=== PATIENT | female | born 1940 | race Caucasian/White ===

== ENCOUNTER 2019-04-10 11:36 | Inpatient (IN) | payer MEDICARE ==
[2019-04-10] MEDS ORDERED: BACIGUENT PACKET TP ONE (12:01)
--- NOTE | 2019-04-10 12:05 | ERPHSYRPT ---
- History of Present Illness Time Seen by Provider: 04/10/19 11:50 Source: patient, family (daughter) Exam Limitations: no limitations Physician History: Apparently got light headed and fell; refers to being light headed somewhat often. Says Right ankle is a little sore but thinks this was with "scooting" in moving with the transfer. C/O of Left elbow skin tear. No pain with use of either arm or elbows. Reason for Fall: lightheaded Injuries/Pain Location: upper extremity (Leftelbow skin tear; no pain) Loss of Consciousness: no loss of consciousness Associated Symptoms (Fall): denies symptoms Allergies/Adverse Reactions: tetracycline Allergy (Verified 04/10/19 11:53) Home Medications: Atorvastatin Calcium [Lipitor] 20 mg PO DAILY 04/10/19 [History] Fluticasone Propionate [Flonase NASAL] 16 gm NS BID 04/10/19 [History] Furosemide 80 mg PO DAILY 04/10/19 [History] Gabapentin 300 mg PO BID 04/10/19 [History] Levothyroxine Sodium [Levoxyl] 112 mcg PO DAILY 04/10/19 [History] PANTOPRAZOLE 40 mg Tablet [Protonix 40MG Tablet] 40 mg PO QAM 04/10/19 [ History] Potassium Chloride [Klor-Con M10] 10 meq PO TID 04/10/19 [History] Tramadol HCl 50 mg [Ultram 50 mg] 100 mg PO BID 04/10/19 [History] Hx Tetanus, Diphtheria Vaccination/Date Given: Yes (ER today) - Review of Systems Constitutional: No Symptoms Respiratory: No Symptoms Cardiac: No Symptoms Abdominal/Gastrointestinal: No Symptoms Genitourinary Symptoms: No Symptoms Neurological: Other (Light headed at times; clarifies - used to happen frequently until about 2 years ago) All Other Systems: Reviewed and Negative - Past Medical History Pertinent Past Medical History: Yes (prior hx similar) Neurological History: No Pertinent History ENT History: No Pertinent History - Past Surgical History Cardiac: No Pertinent History Respiratory: No Pertinent History Gastrointestinal: No Pertinent History Genitourinary: No Pertinent History - Nursing Vital Signs Nursing Vital Signs: Initial Vital Signs Temperature 100.9 F 04/10/19 11:57 Pulse Rate 95 H 04/10/19 11:57 Respiratory Rate 16 04/10/19 11:57 Blood Pressure 105/68 04/10/19 11:57 O2 Sat by Pulse Oximetry 96 04/10/19 11:57 Pain Scale Pain Intensity 0 - Joanna Coma Score Best Eye Response (Joanan): (4) open spontaneously Best Verbal Response (Wall): (5) oriented Best Motor Response (Joanna): (6) obeys commands Wall Total: 15 - Physical Exam General Appearance: no apparent distress Head Injury: no evidence of injury Eye Exam: PERRL/EOMI ENT Exam: airway nml Neck Exam: supple, No carotid bruit Respiratory/Chest Exam: normal breath sounds, No respiratory distress Cardiovascular Exam: normal heart sounds, normal peripheral pulses, No edema Gastrointestinal Exam: soft, normal bowel sounds Neurologic Exam: alert, oriented x 3, cooperative Skin Exam: normal color, warm, dry, abrasion (Skin tear L elbow) SpO2 Interpretation: normal O2 Delivery: Room Air - Course Nursing assessment & vital signs reviewed: Yes Ordered Tests: Active Orders 24 hr Category Date Time Status Up With Assistance ROUTINE Activity 04/10/19 15:21 Active Code Status Order ROUTINE Care 04/10/19 15:21 Active Fall Protocol ROUTINE Care 04/10/19 15:23 Active IV Care Q6H Care 04/10/19 15:21 Active Neuro Checks Q4H Care 04/10/19 15:[address] in Observation ROUTINE Care 04/10/19 15:21 Active Wound Care STAT Care 04/10/19 12:00 Active Regular Diet Diet 04/10/19 Dinner Active HEAD WITHOUT CONTRAST [CT] Stat Exams 04/10/19 13:02 Taken CBC W DIFF AM.LAB Lab 04/11/19 04:00 Ordered CBC W DIFF Stat Lab 04/10/19 12:30 Completed CMP AM.LAB Lab 04/11/19 04:00 Ordered CMP Stat Lab 04/10/19 12:30 Completed CULTURE,URINE Stat Lab 04/10/19 12:31 Received Manual Differential NC Stat Lab 04/10/19 12:30 Completed UA W/RFX UR CULTURE Stat Lab 04/10/19 12:31 Completed Medication Summary Generic Name Dose Route Start Last Admin Trade Name Freq PRN Reason Stop Dose Admin Enoxaparin Sodium 40 mg 04/10/19 16:16 Enoxaparin Sodium SQ 05/10/19 16:15 DAILY BETH Fluticasone Propionate 16 gm 04/10/19 17:00 Flonase Nasal NS 05/10/19 16:59 BID [facility] Gabapentin 300 mg 04/10/19 17:00 Neurontin 300 Mg PO 05/10/19 16:59 BID [facility] Sodium Chloride 1,000 mls @ 100 mls/hr 04/10/19 15:30 Sodium Chloride 0.9% 1000 Ml IV 05/10/19 15:29 .Q10H [facility] Levothyroxine Sodium 112 mcg 04/10/19 17:00 Synthroid 112 Mcg PO 05/10/19 16:59 QAM [facility] Pantoprazole Sodium 40 mg 04/10/19 17:00 Protonix 40mg Tablet PO 05/10/19 16:59 DAILY [facility] Simvastatin 20 mg 04/10/19 17:00 Zocor 20mg PO 05/10/19 16:59 DAILY [facility] Tramadol HCl 100 mg 04/10/19 17:00 Ultram 50 Mg PO 05/10/19 16:59 BID [facility] Discontinued Medications Generic Name Dose Route Start Last Admin Trade Name Freq PRN Reason Stop Dose Admin Acetaminophen 500 mg 04/10/19 15:38 04/10/19 15:42 Tylenol Extra Strength 500 Mg PO 04/10/19 15:39 500 mg STAT STA Administration Acetaminophen Confirm 04/10/19 15:41 Tylenol Extra Strength 500 Mg Administered 04/10/19 15:42 Dose 500 mg .ROUTE .STK-MED ONE Bacitracin Zinc 0.9 gm 04/10/19 12:01 04/10/19 12:19 Baciguent Packet TP 04/10/19 12:02 0.9 gm STAT ONE Administration Bacitracin Zinc Confirm 04/10/19 12:14 Baciguent Packet Administered 04/10/19 12:15 Dose 1 gm .ROUTE .STK-MED ONE Sodium Chloride 1,000 mls @ 999 mls/hr 04/10/19 12:25 04/10/19 13:51 Sodium Chloride 0.9% 1000 Ml IV 04/10/19 13:25 Infused .Q1H1M STA Infusion Sodium Chloride 1,000 mls @ 999 mls/hr 04/10/19 12:26 04/10/19 12:28 Sodium Chloride 0.9% 1000 Ml IV 04/10/19 13:26 Not Given .Q1H1M STA Sodium Chloride Confirm 04/10/19 12:26 Sodium Chloride 0.9% 1000 Ml Administered 04/10/19 12:27 Dose 1,000 mls @ ud .ROUTE .STK-MED ONE Tetanus/Diphtheria Toxoids Adsorbed 0.5 ml 04/10/19 12:11 04/10/19 12:18 Tenivac Vial IM 04/10/19 12:12 0.5 ml .ONCE ONE Administration Tetanus/Diphtheria Toxoids Adsorbed Confirm 04/10/19 12:15 Tenivac Vial Administered 04/10/19 12:16 Dose 0.5 ml IM .STK-MED ONE Lab/Rad Data: Laboratory Result Diagrams 04/10/19 12:30 04/10/19 12:30 Laboratory Results 04/10/19 04/10/19 04/10/19 Range/Units 12:31 12:30 12:30 WBC 17.2 H (4.0-10.5) K/mm3 RBC 3.30 L (4.1-5.4) M/mm3 Hgb 11.1 L (12.0-16.0) gm/dl Hct 34.4 L (35-47) % MCV 104.2 H (78-100) fl MCH 33.6 H (26-32) pg MCHC 32.3 (32-36) g/dl RDW 14.0 (11.5-14.0) % Plt Count 386 (150-450) K/mm3 MPV 12.7 H (6-9.5) fl Segmented Neutrophils 73 H (36.0-66.0) % Band Neutrophils 9 H (0.0-2.0) % Lymphocytes (Manual) 15 L (24-44) % Monocytes (Manual) 2 (0.0-12.0) % Atypical Lymphocytes 1 % Hypochromia 1+ Platelet Estimate NORMAL (NORMAL) RBC Morphology ABNORMAL Macrocytosis 1+ Sodium 139 (137-145) mmol/L Potassium 4.1 (3.5-5.1) mmol/L Chloride 103 (98-107) mmol/L Carbon Dioxide 26 (22-30) mmol/L Anion Gap 13.2 (5-15) MEQ/L BUN 21 H (7-17) mg/dL Creatinine 1.48 H (0.52-1.04) mg/dL Estimated GFR 36.0 ML/MIN Glucose 132 H (74-106) mg/dL Calcium 9.2 (8.4-10.2) mg/dL Total Bilirubin 0.90 (0.2-1.3) mg/dL AST 24 (14-36) U/L ALT 16 (0-35) U/L Alkaline Phosphatase 59 (38-126) U/L Serum Total Protein 7.2 (6.3-8.2) g/dL Albumin 4.2 (3.5-5.0) g/dL Urine Color YELLOW (YELLOW) Urine Appearance CLEAR (CLEAR) Urine pH 6.0 (5-6) Ur Specific [place] 1.013 (1.005-1.025) Urine Protein NEGATIVE (Negative) Urine Ketones NEGATIVE (NEGATIVE) Urine Blood NEGATIVE (0-5) [place]/ul Urine Nitrite NEGATIVE (NEGATIVE) Urine Bilirubin NEGATIVE (NEGATIVE) Urine Urobilinogen NEGATIVE (0-1) mg/dL Ur Leukocyte Esterase NEGATIVE (NEGATIVE) Urine WBC (Auto) NONE (0-5) /HPF Urine Mucus (Auto) SLIGHT (NEGATIVE) /HPF Urine Culture Reflexed ORDERED SEPARATELY (NO) Urine Glucose NEGATIVE (NEGATIVE) mg/dL - Progress Progress: improved (no distress; ate meal;) Progress Note: 04/10/19 17:07Discussd at length high WBC - history of same and being followed at [facility] for same. Urine clear on UA; labs essentially unremarkable otherwise. Discussed with Dr. Urbano who agrees with admission/OBS - weakness/ dehydration. Discussed with : Sundeep Will see patient in: hospital (observation) (Agrees with Admission/OBS) - Departure Departure Disposition: Observation Clinical Impression: Weakness, Dehydration Condition: Stable Critical Care Time: Yes Critical Care Time(excluding separately billable procedures): 30-74 minutes ( Review of labs, history of prior similar presentation and history of eval for high WBC; discussion with daughter and patient and attending; CT eval of head ( headache)), ___ minutes
[2019-04-10] MEDS ORDERED: TENIVAC VIAL IM ONE ×2 (12:11→12:15)
[2019-04-10] MEDS ORDERED: BACIGUENT PACKET ONE (12:14)
[2019-04-10] MEDS ORDERED: Sodium Chloride 0.9% 1000 ML 1,000 ML IV STA ×2 (12:25→12:26)
[2019-04-10] MEDS ORDERED: Sodium Chloride 0.9% 1000 ML 1,000 ML ONE (12:26)
[2019-04-10 12:38] LABS: Hematocrit 34.4 % (35-47); Hemoglobin 11.1 gm/dl (12.0-16.0); Mean Cell Volume 104.2 fl (78-100); Mean Corpuscular Hemoglobin 33.6 pg (26-32); Mean Corpuscular Hgb Concent. 32.3 g/dl (32-36); Mean Platelet Volume 12.7 fl (6-9.5); Platelet Count 386 K/mm3 (150-450); White Blood Count 17.2 K/mm3 (4.0-10.5)
[2019-04-10 12:40] LABS: Appearance CLEAR (CLEAR); Bilirubin NEGATIVE (NEGATIVE); Blood NEGATIVE Ery/ul (0-5); Glucose NEGATIVE (NEGATIVE); Ketones NEGATIVE (NEGATIVE); Leukocyte Esterase NEGATIVE (NEGATIVE); Mucus SLIGHT /HPF (NEGATIVE); Nitrite NEGATIVE (NEGATIVE); Protein,Urine Dip NEGATIVE (Negative); Specific Gravity 1.013 (1.005-1.025); Urobilinogen NEGATIVE mg/dL (0-1)
[2019-04-10 12:42] LABS: ALBUMIN 4.2 g/dL (3.5-5.0); ANION GAP 13.2 MEQ/L (5-15); BILIRUBIN,TOTAL 0.9 mg/dL (0.2-1.3); Calcium 9.2 mg/dL (8.4-10.2); Creatinine 1 1.48 mg/dL (0.52-1.04); Potassium 4.1 mmol/L (3.5-5.1); Total Protein 7.2 g/dL (6.3-8.2)
[2019-04-10 13:39] LABS: ATYPICAL LYMPHS 1 %; BAND 9 % (0.0-2.0); Hypochromia 1+; Lymphocytes 15 % (24-44); Macrocytosis 1+; Monocyte 2 % (0.0-12.0); Neutrophils 73 % (36.0-66.0); Platelet Estimate NORMAL (NORMAL); Total Cells Counted 100
[2019-04-10] MEDS ORDERED: TYLENOL EXTRA STRENGTH 500 MG PO STA (15:38)
[2019-04-10] MEDS ORDERED: TYLENOL EXTRA STRENGTH 500 MG ONE (15:41)
[2019-04-10] MEDS: Flonase NASAL NS SCH ×2 (17:26→21:53)
[2019-04-10] MEDS: ULTRAM 50 MG PO SCH ×2 (17:27→21:52)
[2019-04-10] MEDS: NEURONTIN 300 MG PO SCH ×2 (17:27→21:52)
[2019-04-10] MEDS: ZOCOR 20MG PO SCH (17:33)
[2019-04-10] MEDS: SYNTHROID 112 MCG PO SCH (17:33)
[2019-04-10] MEDS: Protonix 40MG Tablet PO SCH (17:33)
[2019-04-10] MEDS: ENOXAPARIN SODIUM SQ SCH (17:34)
[2019-04-10] MEDS ORDERED: Zofran 4 MG/2 ML VIAL IV PRN (19:47)
[2019-04-10] MEDS: TYLENOL 325 MG PO PRN (19:59)
--- NOTE | 2019-04-10 20:55 | XRAY ---
Indication: Headache following fall. Multiple contiguous axial images obtained through the head without contrast. Comparison: None Age-appropriate global atrophy and mild periventricular degenerative micro-ischemia bilaterally. No acute intracranial hemorrhage, abnormal extra-axial fluid collection, or mass effect. Fourth ventricle is midline without hydrocephalus. Bony calvarium intact. Visualized paranasal sinuses and mastoid air cells are clear. Impression: Nonacute senile brain. Comment: Preliminary interpretation was made by [facility]. No discrepancy. CTDI 50.87
[2019-04-10] MEDS: Sodium Chloride 0.9% 1000 ML 1,000 ML IV SCH (21:27)
[2019-04-10] MEDS ORDERED: ROCEPHIN 1 Gm-D5w 50 ml Bag** 1 G/50 ML IVPB IV SCH (22:00)
[2019-04-11 06:01] LABS: Hematocrit 30.1 % (35-47); Hemoglobin 9.6 gm/dl (12.0-16.0); Mean Cell Volume 105.2 fl (78-100); Mean Corpuscular Hgb Concent. 31.9 g/dl (32-36); Mean Platelet Volume 12.6 fl (6-9.5); Platelet Count 316 K/mm3 (150-450); Red Blood Count 2.86 M/mm3 (4.1-5.4); Red Cell Distribution Width 14.2 % (11.5-14.0); White Blood Count 18.9 K/mm3 (4.0-10.5)
[2019-04-11 06:11] LABS: Mean Corpuscular Hemoglobin 33.5 pg (26-32)
[2019-04-11 06:51] LABS: ALBUMIN 3.2 g/dL (3.5-5.0); ANION GAP 10.3 MEQ/L (5-15); BILIRUBIN,TOTAL 0.9 mg/dL (0.2-1.3); Calcium 8.2 mg/dL (8.4-10.2); Creatinine 1 1.3 mg/dL (0.52-1.04); Total Protein 5.8 g/dL (6.3-8.2)
[2019-04-11] MEDS: TYLENOL 325 MG PO PRN (07:02)
[2019-04-11] MEDS: Sodium Chloride 0.9% 1000 ML 1,000 ML IV SCH (07:49)
--- NOTE | 2019-04-11 08:22 | PCM.HP ---
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 - Review of Systems Constitutional: Fever, Chills, Weakness Respiratory: No Cough, No Short Of Breath Cardiac: No Chest Pain, No Edema, No Syncope Abdominal/Gastrointestinal: No Abdominal Pain, No Nausea, No Vomiting, No Diarrhea Genitourinary Symptoms: No Dysuria Musculoskeletal: Other (right lower leg red, painful) Medications & Allergies Home Medications: Home Medication List Atorvastatin Calcium [Lipitor] 20 mg PO DAILY 04/10/19 [History Confirmed ] Fluticasone Propionate [Flonase NASAL] 16 gm NS BID 04/10/19 [History Confirmed 04/10/19] Furosemide 80 mg PO DAILY 04/10/19 [History Confirmed 04/10/19] Gabapentin 300 mg PO BID 04/10/19 [History Confirmed 04/10/19] Levothyroxine Sodium [Levoxyl] 112 mcg PO DAILY 04/10/19 [History Confirmed 12/24] PANTOPRAZOLE 40 mg Tablet [Protonix 40MG Tablet] 40 mg PO QAM 04/10/19 [ History Confirmed 04/10/19] Potassium Chloride [Klor-Con M10] 10 meq PO TID 04/10/19 [History Confirmed 12/24] Tramadol HCl 50 mg [Ultram 50 mg] 100 mg PO BID 04/10/19 [History Confirmed 04/10/19] Allergies/Adverse Reactions: Allergies Allergy/AdvReac Type Severity Reaction Status Date / Time tetracycline Allergy Verified 04/10/19 11:53 - Past Medical History Past Medical History: Yes (prior hx similar) Neurological History: No Pertinent History ENT History: No Pertinent History Cardiac History: High Cholesterol, Hypertension Respiratory History: No Pertinent History Endocrine Medical History: Hypothyroidism Musculoskelatal History: Arthritis GI Medical History: GERD History: No Pertinent History Pyscho-Social History: No Pertinent History Reproductive Disorders: No Pertinent History - Female History Are you now?: No - Past Surgical History Past Surgical History: Yes Cardiac History: No Pertinent History Respiratory Surgery: No Pertinent History GI Surgical History: No Pertinent History Genitourinary Surgical Hx: No Pertinent History Musculskeletal Surgical Hx: Orthopedic Surgery Female Surgical History: Hysterectomy, Section Other Surgical History: right hip and right hand - Social History Smoking Status: Former smoker Exposure to second hand smoke: No Alcohol: None Drug Use: none - Physical Exam Vital Signs: Vital Signs - 24 hr Temp Pulse Resp BP Pulse Ox 04/11/19 07:22 99.5 F 92 H 18 102/56 93 L 04/11/19 04:10 100.0 F 96 H 17 100/55 94 L 04/10/19 23:56 100.5 F 97 H 16 100/53 97 04/10/19 21:45 100.0 F 04/10/19 19:38 102.3 F 105 H 18 134/93 98 04/10/19 16:55 98.3 F 93 H 20 120/54 97 04/10/19 16:30 98.3 F 93 H 20 120/54 97 04/10/19 16:18 98.3 F 93 H 20 120/54 97 04/10/19 15:13 90 16 90/41 94 L 04/10/19 13:36 91 H 16 100/64 95 04/10/19 11:57 100.9 F 95 H 16 105/68 96 General Appearance: no apparent distress, alert Neurologic Exam: alert, oriented x 3 Respiratory Exam: crackles/rales Cardiovascular Exam: regular rate/rhythm, normal heart sounds, normal peripheral pulses Gastrointestinal/Abdomen Exam: soft, normal bowel sounds, No tenderness, No mass Extremity Exam: other (right lower leg redness and warmth from mid-calf to foot , tender calf. right great toe with ulcerative area with purulent drainage present after dressing removed) Wound Assessment: Skin/Wound Assessment Wound/Incision Assessment Start: 04/10/19 17: 03 Text: Status: Active Freq: Q6H Protocol: Document 04/11/19 02:00 (Rec: 04/11/19 03:26 [id number]) Wound/Incision Assessment Right Toe Wound Assessment Shift Assessment Comment dressing in tact on rt. great toe that was put on by foot MD and is to stay in place until her next appt. Left Elbow Wound Assessment Shift Assessment Wound Type Skin Tear Comment tegaderm in place Wound Photo Photo Taken No Results - Labs Lab/Micro Results: Lab Results-Last 24 Hours 04/10/19 04/10/19 04/10/19 Range/Units 12:30 12:30 12:31 WBC 17.2 H (4.0-10.5) K/mm3 RBC 3.30 L (4.1-5.4) M/mm3 Hgb 11.1 L (12.0-16.0) gm/dl Hct 34.4 L (35-47) % MCV 104.2 H (78-100) fl MCH 33.6 H (26-32) pg MCHC 32.3 (32-36) g/dl RDW 14.0 (11.5-14.0) % Plt Count 386 (150-450) K/mm3 MPV 12.7 H (6-9.5) fl Segmented Neutrophils 73 H (36.0-66.0) % Band Neutrophils 9 H (0.0-2.0) % Lymphocytes (Manual) 15 L (24-44) % Monocytes (Manual) 2 (0.0-12.0) % Atypical Lymphocytes 1 % Hypochromia 1+ Platelet Estimate NORMAL (NORMAL) RBC Morphology ABNORMAL Macrocytosis 1+ Sodium 139 (137-145) mmol/L Potassium 4.1 (3.5-5.1) mmol/L Chloride 103 (98-107) mmol/L Carbon Dioxide 26 (22-30) mmol/L Anion Gap 13.2 (5-15) MEQ/L BUN 21 H (7-17) mg/dL Creatinine 1.48 H (0.52-1.04) mg/dL Estimated GFR 36.0 ML/MIN Glucose 132 H (74-106) mg/dL Calcium 9.2 (8.4-10.2) mg/dL Total Bilirubin 0.90 (0.2-1.3) mg/dL AST 24 (14-36) U/L ALT 16 (0-35) U/L Alkaline Phosphatase 59 (38-126) U/L Serum Total Protein 7.2 (6.3-8.2) g/dL Albumin 4.2 (3.5-5.0) g/dL Urine Color YELLOW (YELLOW) Urine Appearance CLEAR (CLEAR) Urine pH 6.0 (5-6) Ur Specific [place] 1.013 (1.005-1.025) Urine Protein NEGATIVE (Negative) Urine Ketones NEGATIVE (NEGATIVE) Urine Blood NEGATIVE (0-5) [place]/ul Urine Nitrite NEGATIVE (NEGATIVE) Urine Bilirubin NEGATIVE (NEGATIVE) Urine Urobilinogen NEGATIVE (0-1) mg/dL Ur Leukocyte Esterase NEGATIVE (NEGATIVE) Urine WBC (Auto) NONE (0-5) /HPF Urine Mucus (Auto) SLIGHT (NEGATIVE) /HPF Urine Culture Reflexed ORDERED SEPARATELY (NO) Urine Glucose NEGATIVE (NEGATIVE) mg/dL 04/11/19 04/11/19 Range/Units 05:37 05:37 WBC 18.9 H (4.0-10.5) K/mm3 RBC 2.86 L (4.1-5.4) M/mm3 Hgb 9.6 L (12.0-16.0) gm/dl Hct 30.1 L (35-47) % MCV 105.2 H (78-100) fl MCH 33.5 H (26-32) pg MCHC 31.9 L (32-36) g/dl RDW 14.2 H (11.5-14.0) % Plt Count 316 (150-450) K/mm3 MPV 12.6 H (6-9.5) fl Segmented Neutrophils (36.0-66.0) % Band Neutrophils (0.0-2.0) % Lymphocytes (Manual) (24-44) % Monocytes (Manual) (0.0-12.0) % Atypical Lymphocytes % Hypochromia Platelet Estimate (NORMAL) RBC Morphology Macrocytosis Sodium 138 (137-145) mmol/L Potassium 4.0 (3.5-5.1) mmol/L Chloride 108 H (98-107) mmol/L Carbon Dioxide 24 (22-30) mmol/L Anion Gap 10.3 (5-15) MEQ/L BUN 20 H (7-17) mg/dL Creatinine 1.30 H (0.52-1.04) mg/dL Estimated GFR 41.8 ML/MIN Glucose 107 H (74-106) mg/dL Calcium 8.2 L (8.4-10.2) mg/dL Total Bilirubin 0.90 (0.2-1.3) mg/dL AST 17 (14-36) U/L ALT 13 (0-35) U/L Alkaline Phosphatase 43 (38-126) U/L Serum Total Protein 5.8 L (6.3-8.2) g/dL Albumin 3.2 L (3.5-5.0) g/dL Urine Color (YELLOW) Urine Appearance (CLEAR) Urine pH (5-6) Ur Specific [place] (1.005-1.025) Urine Protein (Negative) Urine Ketones (NEGATIVE) Urine Blood (0-5) [place]/ul Urine Nitrite (NEGATIVE) Urine Bilirubin (NEGATIVE) Urine Urobilinogen (0-1) mg/dL Ur Leukocyte Esterase (NEGATIVE) Urine WBC (Auto) (0-5) /HPF Urine Mucus (Auto) (NEGATIVE) /HPF Urine Culture Reflexed (NO) Urine Glucose (NEGATIVE) mg/dL Microbiology 04/10/19 12:31 Urine Culture - Preliminary Catherized NO GROWTH TO DATE - Radiology Impressions Radiology Exams & Impressions: Radiology Procedures Category Date Time Status ARTERIAL UNILAT/LTD LOWER EXT [US] Urgent Exams 04/11/19 Ordered CHEST 1 VIEW (PORTABLE) Urgent Exams 04/10/19 20:00 Taken HEAD WITHOUT CONTRAST [CT] Stat Exams 04/10/19 13:02 Completed VENOUS UNILAT/LIMITED EXTREMIT [US] Urgent Exams 04/11/19 Ordered Assessment/Plan (1) Cellulitis of right lower extremity Current Visit: Yes Status: Acute Assessment & Plan: add vanc, continue rocephin. will get venous doppler to r/o dvt. currently on lovenox 40mg daily Code(s): L03.115 - CELLULITIS OF RIGHT LOWER LIMB (2) Ulcer of toe of right foot Current Visit: Yes Status: Acute Assessment & Plan: wound culture collected by nursing, currently on vanc and rocephin Code(s): L97.519 - NON-PRS CHRONIC ULCER OTH PRT RIGHT FOOT W UNSP SEVERITY (3) Systolic CHF, chronic Current Visit: Yes Status: Acute Assessment & Plan: d/c fluids, patient has crackles on exam. will restart po lasix Code(s): I50.22 - CHRONIC SYSTOLIC (CONGESTIVE) HEART FAILURE
--- NOTE | 2019-04-11 08:39 | XRAY ---
Indication: Fever. Emesis. Comparison: February 05, 2017. Portable chest less inflated crowding the lung bases. No focal infiltrate, consolidation, or large effusion. Stable incidental calcified granulomas. Heart is not enlarged. Bony thorax intact again with osteopenia and degenerative changes. Impression: Nonacute chest with chronic features. Comment: Preliminary interpretation made by C. No discrepancy.
[2019-04-11 09:05] LABS: ANISOCYTOSIS 1+; BAND 6 % (0.0-2.0); Lymphocytes 41 % (24-44); Monocyte 3 % (0.0-12.0); Neutrophils 50 % (36.0-66.0); Total Cells Counted 100
[2019-04-11 09:06] LABS: Platelet Estimate NORMAL (NORMAL); Toxic Granulation 2+
[2019-04-11] MEDS: ENOXAPARIN SODIUM SQ SCH (09:57)
[2019-04-11] MEDS: VANCOCIN 1 GM VIAL*** 1 GM in Sodium Chloride 0.9% 250 ML 250 ML IV SCH (09:57)
[2019-04-11] MEDS: Klor Con 10 MEQ PO SCH ×2 (09:57→22:09)
[2019-04-11] MEDS: Lasix 40 MG PO SCH (09:58)
[2019-04-11] MEDS: Flonase NASAL NS SCH ×2 (09:58→22:09)
[2019-04-11] MEDS: Protonix 40MG Tablet PO SCH (09:58)
[2019-04-11] MEDS: NEURONTIN 300 MG PO SCH ×2 (09:58→22:09)
[2019-04-11] MEDS: ZOCOR 20MG PO SCH (09:59)
[2019-04-11] MEDS: ULTRAM 50 MG PO SCH ×2 (09:59→22:09)
[2019-04-11] MEDS: SYNTHROID 112 MCG PO SCH (10:04)
--- NOTE | 2019-04-11 10:40 | XRAY ---
Indication: Right lower leg erythema and right great toe wound. Two-dimensional sonogram and color Doppler imaging of the major venous vessels of right leg was performed. Comparison: April 13, 2009. No thrombus seen in the examined deep venous vessels of the right leg including greater saphenous vein. Veins demonstrate normal compressibility. Venous waveforms are normal with and without augmentation. Incidental right groin prominent lymph nodes, largest 4.8 x 2.7 x 1.3 cm. Impression: 1. Right leg again negative for DVT. 2. Incidental right groin prominent lymph nodes presumed reactive.
--- NOTE | 2019-04-11 10:42 | XRAY ---
Indication: Right lower leg erythema and right great toe wound. Two-dimensional sonogram and color Doppler imaging of the major arteries of the right leg was performed. Comparison: None Visualized right common femoral, deep femoral, superficial femoral, popliteal, and posterior tibial arteries are negative for critical stenosis/obstruction. 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 Common femoral arterial waveform is biphasic. Remaining right leg arterial waveforms are monophasic. Right arm brachial pressure is 70. Right ankle pressure is 90. Ankle brachial index is 1.3, normal. Impression: 1. 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 Negative for critical stenosis/obstruction. 2. Right ankle-brachial index is 1.3, normal.
[2019-04-11] MEDS: ROCEPHIN 1 Gm-D5w 50 ml Bag** 1 G/50 ML IVPB IV SCH (22:09)
[2019-04-12 05:29] LABS: Hematocrit 28.6 % (35-47); Hemoglobin 9.1 gm/dl (12.0-16.0); Mean Cell Volume 105.5 fl (78-100); Mean Corpuscular Hgb Concent. 31.8 g/dl (32-36); Mean Platelet Volume 12.5 fl (6-9.5); Platelet Count 314 K/mm3 (150-450); Red Blood Count 2.71 M/mm3 (4.1-5.4); Red Cell Distribution Width 14.4 % (11.5-14.0); White Blood Count 15.5 K/mm3 (4.0-10.5)
[2019-04-12 05:33] LABS: Mean Corpuscular Hemoglobin 33.5 pg (26-32)
[2019-04-12 05:50] LABS: ANION GAP 8.7 MEQ/L (5-15); Calcium 8.5 mg/dL (8.4-10.2); Creatinine 1 1.28 mg/dL (0.52-1.04); Potassium 4.3 mmol/L (3.5-5.1)
[2019-04-12 06:13] LABS: BAND 1 % (0.0-2.0); Eosinophil 2 % (0.00-3.0); Lymphocytes 67 % (24-44); Monocyte 6 % (0.0-12.0); Neutrophils 24 % (36.0-66.0); Total Cells Counted 100
[2019-04-12 06:14] LABS: Platelet Estimate NORMAL (NORMAL)
--- NOTE | 2019-04-12 08:36 | PCM.NOTE ---
Date and Time: 04/12/19830 Subjective Assessment: Her erythema is lower than yesterday. She is still having pain in R knee and R lower leg. Has been up out of bed and weakness is better but still present. She is tolerating po well. - Review of Systems Constitutional: No Fever Musculoskeletal: Joint Pain Objective Exam General Appearance: no apparent distress, alert Neurologic Exam: oriented x 3, cooperative Skin Exam: warm, dry Wound Assessment: Skin/Wound Assessment Wound/Incision Assessment Start: 04/10/19 17: 03 Text: Status: Active Freq: Q6H Protocol: Document 04/12/19 02:00 (Rec: 04/12/19 03:08 [id number]) Wound/Incision Assessment Right Toe Wound Assessment Shift Assessment Wound Type WOUND/ULCER Wound Stage Non Pressure Wound Dressing Status Dry & Intact Changed Primary Dressing Non-Adherent Gauze Pads Secondary Dressing Gauze Roll/Wrap Comment Dressing in place to Right great toe. No drainage noted through bandage. Patient foot and lower leg edematous, bright pink, and warm to touch . Edema noted up leg, with swelling up to over knee. Left Elbow Wound Assessment Shift Assessment Wound Type Skin Tear Wound Stage Non Pressure Wound Dressing Status Dry & Intact Drainage Amount None Primary Dressing Tegaderm Wound Photo Photo Taken No Eye Exam: eyes nml inspection Ears, Nose, Throat Exam: moist mucous membranes Respiratory Exam: diminished breath sounds, No crackles/rales, No rhonchi, No wheezing Cardiovascular Exam: regular rate/rhythm, normal heart sounds, No murmur Extremity Exam: other (bilat knees grossly enlarged. R knee is ttp throughout; there is mild erythema laterally. No distinct edema palpable. The lower leg with erythema approx 2[address] from the ankle to the knee. Pedal pulses + bilat. R great toe is wrapped.) OBJECTIVE DATA Vital Signs: Vital Signs - 24 hr Temp Pulse Resp BP Pulse Ox 04/12/19 07:05 98.6 F 76 18 101/54 96 04/12/19 04:00 98.4 F 78 16 92/49 94 L 04/12/19 00:00 99.1 F 82 18 111/53 95 04/11/19 20:00 99.3 F 88 20 98/50 94 L 04/11/19 16:00 98.7 F 79 18 109/58 92 L 04/11/19 12:00 97.9 F 78 18 94/52 97 Pain Assessment - Last Documented Pain Intensity 0 Pain Scale Used [facility] Intake and Output: Intake & Output 04/09/19 04/10/19 04/11/19 04/12/19 11:59 11:59 11:59 11:59 Intake Total 2407 1271 Output Total 500 1500 Balance 1907 -229 Weight 81.647 kg 81.8 kg Lab Results: Lab Results-Last 24 Hours 04/11/19 04/12/19 04/12/19 Range/Units 05:37 05:10 05:10 WBC 15.5 H (4.0-10.5) K/mm3 RBC 2.71 L (4.1-5.4) M/mm3 Hgb 9.1 L (12.0-16.0) gm/dl Hct 28.6 L (35-47) % MCV 105.5 H (78-100) fl MCH 33.5 H (26-32) pg MCHC 31.8 L (32-36) g/dl RDW 14.4 H (11.5-14.0) % Plt Count 314 (150-450) K/mm3 MPV 12.5 H (6-9.5) fl Segmented Neutrophils 50 24 L (36.0-66.0) % Band Neutrophils 6 H 1 (0.0-2.0) % Lymphocytes (Manual) 41 67 H (24-44) % Monocytes (Manual) 3 6 (0.0-12.0) % Eosinophils (Manual) 2 (0.00-3.0) % Toxic Granulation 2+ Platelet Estimate NORMAL NORMAL (NORMAL) RBC Morphology ABNORMAL NORMAL Anisocytosis 1+ Sodium 137 (137-145) mmol/L Potassium 4.3 (3.5-5.1) mmol/L Chloride 109 H (98-107) mmol/L Carbon Dioxide 24 (22-30) mmol/L Anion Gap 8.7 (5-15) MEQ/L BUN 19 H (7-17) mg/dL Creatinine 1.28 H (0.52-1.04) mg/dL Estimated GFR 42.5 ML/MIN Glucose 84 (74-106) mg/dL Calcium 8.5 (8.4-10.2) mg/dL Radiology Exams: Radiology Procedures Category Date Time Status ARTERIAL UNILAT/LTD LOWER EXT [US] Urgent Exams 04/11/19 10:08 Completed CHEST 1 VIEW (PORTABLE) Urgent Exams 04/10/19 20:00 Completed HEAD WITHOUT CONTRAST [CT] Stat Exams 04/10/19 13:02 Completed VENOUS UNILAT/LIMITED EXTREMIT [US] Urgent Exams 04/11/19 10:08 Completed Multi-Disciplinary Progress Notes: Multi-Disciplinary Progress Notes 04/11/19 09:18 Case Management Note by Dalila Spain Talked with JORGE NAVARRO about chronic care coordination program. left handout with pt. Initialized on 04/11/19 09:18 - END OF NOTE 04/11/19 09:16 Pharmacy Note by PNEUMATIC PRESS HAND,PHARM Pt. started on vancomycin 1gm Q24H. Pharmacy has reviewed this dose and it is reasonable for patient's diagnosis of cellulitis. We will order a trough for AM 04/14/19 for monitoring of current dose. Luisa Client Relations Representative Initialized on 04/11/19 09:16 - END OF NOTE Assessment/Plan (1) Cellulitis of right lower extremity Current Visit: Yes Status: Acute Assessment & Plan: On day #2 vancomycin, day #3 of rocephin. Tmax 99.1 last night. She is feeling better. Continue abx. Code(s): L03.115 - CELLULITIS OF RIGHT LOWER LIMB (2) Systolic CHF, chronic Current Visit: Yes Status: Chronic Assessment & Plan: has resumed her po lasix. Code(s): I50.22 - CHRONIC SYSTOLIC (CONGESTIVE) HEART FAILURE (3) Ulcer of toe of right foot Current Visit: Yes Status: Acute Qualifiers: Non-pressure ulcer stage: unspecified non-pressure ulcer stage Qualified Code(s): L97.519 - Non-pressure chronic ulcer of other part of right foot with unspecified severity Assessment & Plan: PT to assess/tx. Saw Dr. Titus last week. Her arterial doppler was done here yesterday and neg for critical stenosis. She states in February her ulcer "fell off, and there was a blood blister underneath it that I guess was full of infection." Code(s): L97.519 - NON-PRS CHRONIC ULCER OTH PRT RIGHT FOOT W UNSP SEVERITY (4) Weakness Current Visit: Yes Status: Acute Assessment & Plan: some improvement. Code(s): R53.1 - WEAKNESS (5) Chronic renal insufficiency, stage III (moderate) Current Visit: Yes Status: Chronic Assessment & Plan: In February 2017 her eGFR was 34. today is 42.5. Code(s): N18.3 - CHRONIC KIDNEY DISEASE, STAGE 3 (MODERATE)
[2019-04-12] MEDS: ENOXAPARIN SODIUM SQ SCH (09:32)
[2019-04-12] MEDS: Protonix 40MG Tablet PO SCH (09:34)
[2019-04-12] MEDS: ZOCOR 20MG PO SCH (09:34)
[2019-04-12] MEDS: Klor Con 10 MEQ PO SCH ×2 (09:35→21:53)
[2019-04-12] MEDS: ULTRAM 50 MG PO SCH ×2 (09:35→21:52)
[2019-04-12] MEDS: Lasix 40 MG PO SCH (09:35)
[2019-04-12] MEDS: NEURONTIN 300 MG PO SCH ×2 (09:36→21:53)
[2019-04-12] MEDS: SYNTHROID 112 MCG PO SCH (09:36)
[2019-04-12] MEDS: Flonase NASAL NS SCH ×2 (09:36→21:53)
[2019-04-12] MEDS: VANCOCIN 1 GM VIAL*** 1 GM in Sodium Chloride 0.9% 250 ML 250 ML IV SCH (09:37)
[2019-04-12] MEDS: TYLENOL 325 MG PO PRN (11:24)
[2019-04-12] MEDS: ROCEPHIN 1 Gm-D5w 50 ml Bag** 1 G/50 ML IVPB IV SCH (21:52)
[2019-04-12] MEDS: TYLENOL EXTRA STRENGTH 500 MG PO PRN (21:52)
[2019-04-13 04:59] LABS: Hematocrit 29.3 % (35-47); Hemoglobin 9.2 gm/dl (12.0-16.0); Mean Corpuscular Hgb Concent. 31.4 g/dl (32-36); Mean Platelet Volume 12.5 fl (6-9.5); Platelet Count 339 K/mm3 (150-450); Red Blood Count 2.79 M/mm3 (4.1-5.4); Red Cell Distribution Width 13.8 % (11.5-14.0); White Blood Count 10.8 K/mm3 (4.0-10.5)
[2019-04-13 05:02] LABS: Mean Corpuscular Hemoglobin 32.9 pg (26-32)
[2019-04-13 05:10] LABS: ANION GAP 9.8 MEQ/L (5-15); Calcium 8.5 mg/dL (8.4-10.2); Creatinine 1 1.18 mg/dL (0.52-1.04)
[2019-04-13 05:31] LABS: BAND 1 % (0.0-2.0); Eosinophil 3 % (0.00-3.0); Lymphocytes 74 % (24-44); Monocyte 4 % (0.0-12.0); Neutrophils 18 % (36.0-66.0); Total Cells Counted 100
[2019-04-13 05:32] LABS: ANISOCYTOSIS 2+; Platelet Estimate INCREASED (NORMAL); Poikilocytosis 2+
--- NOTE | 2019-04-13 08:55 | PCM.NOTE ---
Date and Time: 04/13/19 0853 Subjective Assessment: patient notes improvement in her strength, redness and pain in leg are improving as well. she feels constipated, hasn't had a bowel movement since the day she was admitted Objective Exam General Appearance: no apparent distress Skin Exam: normal color, warm, dry Wound Assessment: Skin/Wound Assessment Wound/Incision Assessment Start: 04/10/19 17: 03 Text: Status: Active Freq: Q6H Protocol: Document 04/13/19 08:00 (Rec: 04/13/19 08:49 [id number]) Wound/Incision Assessment Right Toe Wound Assessment Shift Assessment Wound Type WOUND/ULCER Wound Stage Non Pressure Wound Dressing Status Dry & Intact Comment CDI, PT changes dressings Left Elbow Wound Assessment Shift Assessment Wound Type Skin Tear Wound Stage Non Pressure Wound Dressing Status Dry & Intact Primary Dressing Tegaderm Wound Photo Photo Taken No Respiratory Exam: normal breath sounds, lungs clear, No respiratory distress Cardiovascular Exam: regular rate/rhythm, normal heart sounds Extremity Exam: other (improving erythema to right lower leg, great toe dressing clean, dry, intact) OBJECTIVE DATA Vital Signs: Vital Signs - 24 hr Temp Pulse Resp BP Pulse Ox 04/13/19 07:13 97.7 F 77 18 100/53 96 04/13/19 04:19 98.3 F 71 18 91/50 95 04/12/19 23:48 98.9 F 77 18 98/54 95 04/12/19 19:05 98.7 F 73 16 99/49 98 04/12/19 16:00 98.1 F 67 18 100/55 97 04/12/19 12:00 98.3 F 82 18 114/59 100 Pain Assessment - Last Documented Pain Intensity 2 Pain Scale Used 0-10 Pain Scale,FLACC Intake and Output: Intake & Output 04/10/19 04/11/19 04/12/19 04/13/19 11:59 11:59 11:59 11:59 Intake Total 2407 1751 1870 Output Total 500 1500 3400 Balance 1907 251 -1530 Weight 81.647 kg 81.8 kg Lab Results: Lab Results-Last 24 Hours 04/13/19 04/13/19 Range/Units 04:56 04:56 WBC 10.8 H (4.0-10.5) K/mm3 RBC 2.79 L (4.1-5.4) M/mm3 Hgb 9.2 L (12.0-16.0) gm/dl Hct 29.3 L (35-47) % MCV 105.0 H (78-100) fl MCH 32.9 H (26-32) pg MCHC 31.4 L (32-36) g/dl RDW 13.8 (11.5-14.0) % Plt Count 339 (150-450) K/mm3 MPV 12.5 H (6-9.5) fl Segmented Neutrophils 18 L (36.0-66.0) % Band Neutrophils 1 (0.0-2.0) % Lymphocytes (Manual) 74 H (24-44) % Monocytes (Manual) 4 (0.0-12.0) % Eosinophils (Manual) 3 (0.00-3.0) % Platelet Estimate INCREASED (NORMAL) RBC Morphology ABNORMAL Poikilocytosis 2+ Anisocytosis 2+ Sodium 140 (137-145) mmol/L Potassium 4.0 (3.5-5.1) mmol/L Chloride 110 H (98-107) mmol/L Carbon Dioxide 24 (22-30) mmol/L Anion Gap 9.8 (5-15) MEQ/L BUN 18 H (7-17) mg/dL Creatinine 1.18 H (0.52-1.04) mg/dL Estimated GFR 46.7 ML/MIN Glucose 93 (74-106) mg/dL Calcium 8.5 (8.4-10.2) mg/dL Radiology Exams: Radiology Procedures Category Date Time Status ARTERIAL UNILAT/LTD LOWER EXT [US] Urgent Exams 04/11/19 10:08 Completed VENOUS UNILAT/LIMITED EXTREMIT [US] Urgent Exams 04/11/19 10:08 Completed Assessment/Plan (1) Cellulitis of right lower extremity Current Visit: Yes Status: Acute Assessment & Plan: on vanc/rocephin improving Code(s): L03.115 - CELLULITIS OF RIGHT LOWER LIMB (2) Ulcer of toe of right foot Current Visit: Yes Status: Acute Qualifiers: Non-pressure ulcer stage: unspecified non-pressure ulcer stage Qualified Code(s): L97.519 - Non-pressure chronic ulcer of other part of right foot with unspecified severity Assessment & Plan: klebsiella sens to rocephin, staph on culture with sens. pending still so will continue vanc/rocephin until final culture and sens results Code(s): L97.519 - NON-PRS CHRONIC ULCER OTH PRT RIGHT FOOT W UNSP SEVERITY (3) Systolic CHF, chronic Current Visit: Yes Status: Chronic Code(s): I50.22 - CHRONIC SYSTOLIC ( CONGESTIVE) HEART FAILURE
[2019-04-13] MEDS: VANCOCIN 1 GM VIAL*** 1 GM in Sodium Chloride 0.9% 250 ML 250 ML IV SCH (10:05)
[2019-04-13] MEDS: ULTRAM 50 MG PO SCH ×2 (10:06→21:20)
[2019-04-13] MEDS: Lasix 40 MG PO SCH (10:06)
[2019-04-13] MEDS: Klor Con 10 MEQ PO SCH ×2 (10:06→21:21)
[2019-04-13] MEDS: NEURONTIN 300 MG PO SCH ×2 (10:07→21:22)
[2019-04-13] MEDS: ZOCOR 20MG PO SCH (10:07)
[2019-04-13] MEDS: DULCOLAX 5 MG PO PRN (10:07)
[2019-04-13] MEDS: Protonix 40MG Tablet PO SCH (10:07)
[2019-04-13] MEDS: SYNTHROID 112 MCG PO SCH (10:07)
[2019-04-13] MEDS: ENOXAPARIN SODIUM SQ SCH (10:08)
[2019-04-13] MEDS: Flonase NASAL NS SCH ×2 (10:09→21:22)
[2019-04-13] MEDS: ROCEPHIN 1 Gm-D5w 50 ml Bag** 1 G/50 ML IVPB IV SCH (21:20)
[2019-04-14 05:25] LABS: Hematocrit 29.8 % (35-47); Hemoglobin 9.5 gm/dl (12.0-16.0); Mean Cell Volume 105.7 fl (78-100); Mean Corpuscular Hgb Concent. 31.9 g/dl (32-36); Mean Platelet Volume 12.3 fl (6-9.5); Platelet Count 398 K/mm3 (150-450); Red Blood Count 2.82 M/mm3 (4.1-5.4); Red Cell Distribution Width 13.9 % (11.5-14.0); White Blood Count 11.4 K/mm3 (4.0-10.5)
[2019-04-14 05:27] LABS: Mean Corpuscular Hemoglobin 33.6 pg (26-32)
[2019-04-14 05:40] LABS: ANION GAP 9.7 MEQ/L (5-15); Calcium 8.8 mg/dL (8.4-10.2); Creatinine 1 1.24 mg/dL (0.52-1.04); Potassium 3.8 mmol/L (3.5-5.1)
[2019-04-14 05:59] LABS: ANISOCYTOSIS 1+; Eosinophil 3 % (0.00-3.0); Lymphocytes 78 % (24-44); Metamyelocyte 1 %; Monocyte 4 % (0.0-12.0); Neutrophils 14 % (36.0-66.0); Platelet Estimate NORMAL (NORMAL); Poikilocytosis RARE; Total Cells Counted 100
[2019-04-14 06:00] LABS: Toxic Granulation RARE
--- NOTE | 2019-04-14 07:32 | PCM.NOTE ---
Date and Time: 04/14/19729 Subjective Assessment: patient continues to have some soreness to right lower leg but notes it continues to improve, she has no other problems or concerns. Objective Exam General Appearance: no apparent distress, alert Skin Exam: normal color, warm, dry Wound Assessment: Skin/Wound Assessment Wound/Incision Assessment Start: 04/10/19 17: 03 Text: Status: Active Freq: Q6H Protocol: Document 04/14/19 02:00 MG (Rec: 04/14/19 04:45 MG [id number]) Wound/Incision Assessment Right Toe Wound Assessment Shift Assessment Wound Type WOUND/ULCER Wound Stage Non Pressure Wound Dressing Status Dry & Intact Drainage Amount None Comment Dressing CDI, PT changes dressings Left Elbow Wound Assessment Shift Assessment Wound Type Skin Tear Wound Stage Non Pressure Wound Dressing Status Dry & Intact Primary Dressing Tegaderm Respiratory Exam: normal breath sounds, lungs clear, No respiratory distress Cardiovascular Exam: regular rate/rhythm, normal heart sounds Gastrointestinal/Abdomen Exam: soft, No tenderness, No mass Extremity Exam: other (right lower leg improving erythema, fading edges. right great toe dressing c/d/i) OBJECTIVE DATA Vital Signs: Vital Signs - 24 hr Temp Pulse Resp BP Pulse Ox 04/14/19 04:10 98.0 F 87 15 104/50 95 04/13/19 23:51 98.5 F 73 16 100/67 96 04/13/19 20:00 98.6 F 75 18 94/49 97 04/13/19 16:34 98.2 F 78 20 116/57 96 04/13/19 12:56 97.3 F 78 20 120/56 96 Pain Assessment - Last Documented Pain Intensity 1 Pain Scale Used 0-10 Pain Scale Intake and Output: Intake & Output 04/11/19 04/12/19 04/13/19 04/14/19 11:59 11:59 11:59 11:59 Intake Total 2407 1751 2510 1755 Output Total 500 1500 4100 1450 Balance 1907 251 -1590 305 Weight 81.8 kg 81.8 kg Lab Results: Lab Results-Last 24 Hours 04/14/19 04/14/19 Range/Units 05:25 05:25 WBC 11.4 H (4.0-10.5) K/mm3 RBC 2.82 L (4.1-5.4) M/mm3 Hgb 9.5 L (12.0-16.0) gm/dl Hct 29.8 L (35-47) % MCV 105.7 H (78-100) fl MCH 33.6 H (26-32) pg MCHC 31.9 L (32-36) g/dl RDW 13.9 (11.5-14.0) % Plt Count 398 (150-450) K/mm3 MPV 12.3 H (6-9.5) fl Segmented Neutrophils 14 L (36.0-66.0) % Lymphocytes (Manual) 78 H (24-44) % Monocytes (Manual) 4 (0.0-12.0) % Eosinophils (Manual) 3 (0.00-3.0) % Metamyelocytes 1 % Toxic Granulation RARE Platelet Estimate NORMAL (NORMAL) RBC Morphology ABNORMAL Poikilocytosis RARE Anisocytosis 1+ Sodium 139 (137-145) mmol/L Potassium 3.8 (3.5-5.1) mmol/L Chloride 107 (98-107) mmol/L Carbon Dioxide 26 (22-30) mmol/L Anion Gap 9.7 (5-15) MEQ/L BUN 23 H (7-17) mg/dL Creatinine 1.24 H (0.52-1.04) mg/dL Estimated GFR 44.1 ML/MIN Glucose 89 (74-106) mg/dL Calcium 8.8 (8.4-10.2) mg/dL Assessment/Plan (1) Cellulitis of right lower extremity Current Visit: Yes Status: Acute Assessment & Plan: improving with vanc/rocephin Code(s): L03.115 - CELLULITIS OF RIGHT LOWER LIMB (2) Ulcer of toe of right foot Current Visit: Yes Status: Acute Qualifiers: Non-pressure ulcer stage: unspecified non-pressure ulcer stage Qualified Code(s): L97.519 - Non-pressure chronic ulcer of other part of right foot with unspecified severity Assessment & Plan: klebsiella in culture sens to rocephin, waiting on id/sens of staph according to culture report. Code(s): L97.519 - NON-PRS CHRONIC ULCER OTH PRT RIGHT FOOT W UNSP SEVERITY (3) Systolic CHF, chronic Current Visit: Yes Status: Chronic Assessment & Plan: stable/euvolemic at this time. Code(s): I50.22 - CHRONIC SYSTOLIC (CONGESTIVE) HEART FAILURE
[2019-04-14] MEDS ORDERED: TROUGH DRUG LEVELS IJ ONE (09:30)
[2019-04-14] MEDS: Protonix 40MG Tablet PO SCH (10:27)
[2019-04-14] MEDS: ENOXAPARIN SODIUM SQ SCH (10:27)
[2019-04-14] MEDS: SYNTHROID 112 MCG PO SCH (10:27)
[2019-04-14] MEDS: Lasix 40 MG PO SCH (10:27)
[2019-04-14] MEDS: NEURONTIN 300 MG PO SCH ×2 (10:27→21:28)
[2019-04-14] MEDS: Klor Con 10 MEQ PO SCH ×2 (10:27→21:28)
[2019-04-14] MEDS: ULTRAM 50 MG PO SCH ×2 (10:27→21:28)
[2019-04-14] MEDS: ZOCOR 20MG PO SCH (10:27)
[2019-04-14] MEDS: Flonase NASAL NS SCH ×2 (10:28→21:27)
[2019-04-14] MEDS: VANCOCIN 1 GM VIAL*** 1 GM in Sodium Chloride 0.9% 250 ML 250 ML IV SCH (11:26)
[2019-04-14] MEDS: VANCOCIN 1 GM VIAL*** 1.25 GM in Sodium Chloride 0.9% 250 ML 250 ML IV SCH (11:31)
[2019-04-14] MEDS: Colace 100 MG PO PRN (16:51)
[2019-04-14] MEDS: ROCEPHIN 1 Gm-D5w 50 ml Bag** 1 G/50 ML IVPB IV SCH (21:28)
[2019-04-14] MEDS: TYLENOL 325 MG PO PRN (21:28)
[2019-04-15 05:13] LABS: Hematocrit 29.4 % (35-47); Hemoglobin 9.3 gm/dl (12.0-16.0); Mean Cell Volume 103.9 fl (78-100); Mean Corpuscular Hgb Concent. 31.6 g/dl (32-36); Platelet Count 428 K/mm3 (150-450); Red Blood Count 2.83 M/mm3 (4.1-5.4); Red Cell Distribution Width 13.8 % (11.5-14.0); White Blood Count 12.1 K/mm3 (4.0-10.5)
[2019-04-15 05:18] LABS: Mean Corpuscular Hemoglobin 32.8 pg (26-32)
[2019-04-15 05:24] LABS: ANION GAP 10.7 MEQ/L (5-15); Creatinine 1 1.23 mg/dL (0.52-1.04); Potassium 3.8 mmol/L (3.5-5.1)
--- NOTE | 2019-04-15 07:56 | PCM.NOTE ---
Date and Time: 04/15/19 0753 Subjective Assessment: redness and pain in right foot and right lower leg continue to improve. patient is tired this morning, bp this am 84/43 Objective Exam General Appearance: no apparent distress Neurologic Exam: alert, oriented x 3 Wound Assessment: Skin/Wound Assessment Wound/Incision Assessment Start: 04/10/19 17: 03 Text: Status: Active Freq: Q6H Protocol: Document 04/14/19 20:00 MG (Rec: 04/15/19 01:40 MG [id number]) Wound/Incision Assessment Right Toe Wound Assessment Shift Assessment Wound Type WOUND/ULCER Wound Stage Non Pressure Wound Dressing Status Dry & Intact Drainage Amount None Comment PHYSICAL THERAPY TO DO DRESSING CHANGES, Dressing CDI Left Elbow Wound Assessment Shift Assessment Wound Type Skin Tear Wound Stage Non Pressure Wound Dressing Status Dry & Intact Primary Dressing TEGADERM Respiratory Exam: normal breath sounds, lungs clear, No respiratory distress Cardiovascular Exam: regular rate/rhythm, normal heart sounds Gastrointestinal/Abdomen Exam: soft, No tenderness, No mass Extremity Exam: other (right great toe dressing clean, dry, intact. erythema and warmth to right lower leg continued) OBJECTIVE DATA Vital Signs: Vital Signs - 24 hr Temp Pulse Resp BP Pulse Ox 04/15/19 07:20 98 F 74 18 104/55 96 04/15/19 04:25 98.0 F 79 18 112/56 96 04/15/19 00:00 98.4 F 68 18 114/58 97 04/14/19 20:00 98.5 F 71 18 115/56 98 04/14/19 15:41 97.8 F 67 18 112/66 96 04/14/19 12:00 98.9 F 76 18 114/56 97 04/14/19 08:27 84 111/53 04/14/19 08:00 98.2 F 76 17 84/43 95 Pain Assessment - Last Documented Pain Intensity 5 Pain Scale Used 0-10 Pain Scale Intake and Output: Intake & Output 04/12/19 04/13/19 04/14/19 04/15/19 11:59 11:59 11:59 11:59 Intake Total 1751 2510 2105 1400 Output Total 1500 4100 1450 900 Balance 251 -1590 655 500 Weight 81.8 kg Lab Results: Lab Results-Last 24 Hours 04/14/19 04/15/19 04/15/19 Range/Units 09:30 05:07 05:07 WBC 12.1 H (4.0-10.5) K/mm3 RBC 2.83 L (4.1-5.4) M/mm3 Hgb 9.3 L (12.0-16.0) gm/dl Hct 29.4 L (35-47) % MCV 103.9 H (78-100) fl MCH 32.8 H (26-32) pg MCHC 31.6 L (32-36) g/dl RDW 13.8 (11.5-14.0) % Plt Count 428 (150-450) K/mm3 MPV 12.0 H (6-9.5) fl Sodium 140 (137-145) mmol/L Potassium 3.8 (3.5-5.1) mmol/L Chloride 106 (98-107) mmol/L Carbon Dioxide 27 (22-30) mmol/L Anion Gap 10.7 (5-15) MEQ/L BUN 24 H (7-17) mg/dL Creatinine 1.23 H (0.52-1.04) mg/dL Estimated GFR 44.5 ML/MIN Glucose 86 (74-106) mg/dL Calcium 9.0 (8.4-10.2) mg/dL Vancomycin Trough 5.22 L (10-20) ug/mL Multi-Disciplinary Progress Notes: Multi-Disciplinary Progress Notes 04/14/19 14:19 Physical Therapy Note by Obdulia Yoon PICTURE OF RIGHT GREAT TOE WOUND IN CHART. SUPERFICIAL WOUND, NO DRAINAGE; TOPICAL TX WITH CALMOSEPTINE AND GAUZE COVER. BARRIER OINTMENT TO INTACT SKIN RIGHT FOOT AND LOWER LEG TO PREVENT LOSS OF SKIN INTEGRITY SECONDARY TO CELLULITIS. Initialized on 04/14/19 14:19 - END OF NOTE Assessment/Plan (1) Cellulitis of right lower extremity Current Visit: Yes Status: Acute Assessment & Plan: improving on vanc and rocephin, doing well Code(s): L03.115 - CELLULITIS OF RIGHT LOWER LIMB (2) Ulcer of toe of right foot Current Visit: Yes Status: Acute Qualifiers: Non-pressure ulcer stage: unspecified non-pressure ulcer stage Qualified Code(s): L97.519 - Non-pressure chronic ulcer of other part of right foot with unspecified severity Assessment & Plan: klebsiella sens to rocephin on culture and 2nd staph species with c and s pending, continue vanc and rocephin. has an appt with Dr Titus to f/u on toe ulcer on Thursday. will likely be able to discharge by Thursday to f/u with him Code(s): L97.519 - NON-PRS CHRONIC ULCER OTH PRT RIGHT FOOT W UNSP SEVERITY (3) Systolic CHF, chronic Current Visit: Yes Status: Chronic Assessment & Plan: hypotension this am noted but no significant symptoms. will hold lasix and K today and monitor Code(s): I50.22 - CHRONIC SYSTOLIC (CONGESTIVE) HEART FAILURE
[2019-04-15] MEDS: ENOXAPARIN SODIUM SQ SCH (09:43)
[2019-04-15] MEDS: NEURONTIN 300 MG PO SCH ×2 (09:43→22:19)
[2019-04-15] MEDS: Flonase NASAL NS SCH ×2 (09:43→22:20)
[2019-04-15] MEDS: ULTRAM 50 MG PO SCH ×2 (09:43→22:19)
[2019-04-15] MEDS: ZOCOR 20MG PO SCH (09:43)
[2019-04-15] MEDS: Protonix 40MG Tablet PO SCH (09:43)
[2019-04-15] MEDS: SYNTHROID 112 MCG PO SCH (09:44)
[2019-04-15] MEDS: VANCOCIN 1 GM VIAL*** 1.25 GM in Sodium Chloride 0.9% 250 ML 250 ML IV SCH (09:48)
[2019-04-15 14:25] LABS: Lymphocytes 79 % (24-44); Monocyte 2 % (0.0-12.0); Neutrophils 19 % (36.0-66.0); Total Cells Counted 100
[2019-04-15 14:26] LABS: ANISOCYTOSIS 1+; Platelet Estimate NORMAL (NORMAL); Poikilocytosis 1+; Polychromasia 1+
[2019-04-15] MEDS: DULCOLAX 5 MG PO PRN (14:57)
[2019-04-15] MEDS: TYLENOL 325 MG PO PRN (14:57)
[2019-04-15] MEDS: Colace 100 MG PO PRN (14:57)
[2019-04-15] MEDS: ROCEPHIN 1 Gm-D5w 50 ml Bag** 1 G/50 ML IVPB IV SCH (22:18)
[2019-04-15] MEDS: VANCOCIN 1 GM VIAL*** 1 GM in Sodium Chloride 0.9% 250 ML 250 ML IV SCH (23:08)
[2019-04-16 06:09] LABS: Hematocrit 29.3 % (35-47); Hemoglobin 9.2 gm/dl (12.0-16.0); Mean Cell Volume 104.3 fl (78-100); Mean Corpuscular Hemoglobin 32.7 pg (26-32); Mean Corpuscular Hgb Concent. 31.4 g/dl (32-36); Platelet Count 424 K/mm3 (150-450); Red Blood Count 2.81 M/mm3 (4.1-5.4); Red Cell Distribution Width 13.8 % (11.5-14.0)
[2019-04-16 06:55] LABS: ANION GAP 8.7 MEQ/L (5-15); Calcium 8.9 mg/dL (8.4-10.2); Creatinine 1 1.1 mg/dL (0.52-1.04)
[2019-04-16] MEDS: ENOXAPARIN SODIUM SQ SCH (09:47)
[2019-04-16] MEDS: Flonase NASAL NS SCH ×2 (09:47→21:48)
[2019-04-16] MEDS: Protonix 40MG Tablet PO SCH (09:48)
[2019-04-16] MEDS: SYNTHROID 112 MCG PO SCH (09:48)
[2019-04-16] MEDS: ZOCOR 20MG PO SCH (09:48)
[2019-04-16] MEDS: ULTRAM 50 MG PO SCH ×2 (09:48→21:49)
[2019-04-16] MEDS: NEURONTIN 300 MG PO SCH ×2 (09:48→21:49)
[2019-04-16] MEDS: VANCOCIN 1 GM VIAL*** 1 GM in Sodium Chloride 0.9% 250 ML 250 ML IV SCH ×2 (09:50→21:56)
[2019-04-16 10:58] LABS: Basophil 1 % (0.0-1.0); Eosinophil 1 % (0.00-3.0); Lymphocytes 77 % (24-44); Monocyte 3 % (0.0-12.0); Neutrophils 18 % (36.0-66.0); Total Cells Counted 100
[2019-04-16 11:00] LABS: ANISOCYTOSIS 1+; Platelet Estimate NORMAL (NORMAL); Poikilocytosis 1+
--- NOTE | 2019-04-16 11:44 | PCM.NOTE ---
Date and Time: 04/16/19 1139 Subjective Assessment: She is feeling a little less tired than yesterday but still fatigued. Alex po. Was found to have MRSA in culture yesterday so now on contact precautions. Objective Exam Wound Assessment: Skin/Wound Assessment Wound/Incision Assessment Start: 04/10/19 17: 03 Text: Status: Active Freq: Q6H Protocol: Document 04/16/19 08:00 CL (Rec: 04/16/19 09:10 CL [id number]) Wound/Incision Assessment Right Toe Wound Assessment Shift Assessment Wound Type WOUND/ULCER Wound Stage Non Pressure Wound Dressing Status Dry & Intact Drainage Amount None Comment PHYSICAL THERAPY did dressing change yesterday and dressing can stay on over the weekend per S.Karrie, PT. Dressing CDI. Left Elbow Wound Assessment Shift Assessment Wound Type Skin Tear Wound Stage Non Pressure Wound Dressing Status Dry & Intact Primary Dressing TEGADERM Wound Photo Photo Taken No OBJECTIVE DATA Vital Signs: Vital Signs - 24 hr Temp Pulse Resp BP Pulse Ox 04/16/19 07:37 98.5 F 60 20 105/57 94 L 04/16/19 04:00 98.2 F 82 18 122/58 95 04/16/19 00:00 98.4 F 69 18 110/54 98 04/15/19 20:00 98.1 F 78 20 101/58 96 04/15/19 16:54 97.4 F 74 20 124/56 97 04/15/19 12:47 97.8 F 68 20 130/59 97 Pain Assessment - Last Documented Pain Intensity 3 Pain Scale Used [facility] Intake and Output: Intake & Output 04/13/19 04/14/19 04/15/19 04/16/19 11:59 11:59 11:59 11:59 Intake Total 2510 2105 1640 1165 Output Total 4100 1450 1100 Balance -1590 844 016 7791 Weight 81.8 kg Lab Results: Lab Results-Last 24 Hours 04/15/19 04/16/19 04/16/19 Range/Units 05:07 05:33 05:33 WBC 12.4 H (4.0-10.5) K/mm3 RBC 2.81 L (4.1-5.4) M/mm3 Hgb 9.2 L (12.0-16.0) gm/dl Hct 29.3 L (35-47) % MCV 104.3 H (78-100) fl MCH 32.7 H (26-32) pg MCHC 31.4 L (32-36) g/dl RDW 13.8 (11.5-14.0) % Plt Count 424 (150-450) K/mm3 MPV 12.0 H (6-9.5) fl Segmented Neutrophils 19 L 18 L (36.0-66.0) % Lymphocytes (Manual) 79 H 77 H (24-44) % Monocytes (Manual) 2 3 (0.0-12.0) % Eosinophils (Manual) 1 (0.00-3.0) % Basophils (Manual) 1 (0.0-1.0) % Platelet Estimate NORMAL NORMAL (NORMAL) RBC Morphology ABNORMAL ABNORMAL Polychromasia 1+ Poikilocytosis 1+ 1+ Anisocytosis 1+ 1+ Sodium 139 (137-145) mmol/L Potassium 4.0 (3.5-5.1) mmol/L Chloride 108 H (98-107) mmol/L Carbon Dioxide 26 (22-30) mmol/L Anion Gap 8.7 (5-15) MEQ/L BUN 24 H (7-17) mg/dL Creatinine 1.10 H (0.52-1.04) mg/dL Estimated GFR 50.7 ML/MIN Glucose 90 (74-106) mg/dL Calcium 8.9 (8.4-10.2) mg/dL Assessment/Plan (1) Cellulitis of right lower extremity Current Visit: Yes Status: Acute Assessment & Plan: on day #6 of rocephin and vancomycin. Code(s): L03.115 - CELLULITIS OF RIGHT LOWER LIMB (2) Ulcer of toe of right foot Current Visit: Yes Status: Acute Qualifiers: Non-pressure ulcer stage: unspecified non-pressure ulcer stage Qualified Code(s): L97.519 - Non-pressure chronic ulcer of other part of right foot with unspecified severity Assessment & Plan: culture + for K. pneumoniae and MRSA - Klebsiella is susceptible to rocephin and MRSA susceptible to vancomycin. Code(s): L97.519 - NON-PRS CHRONIC ULCER OTH PRT RIGHT FOOT W UNSP SEVERITY (3) Systolic CHF, chronic Current Visit: Yes Status: Chronic Code(s): I50.22 - CHRONIC SYSTOLIC ( CONGESTIVE) HEART FAILURE (4) Weakness Current Visit: Yes Status: Acute Assessment & Plan: BP was quite low yesterday, 84/43. Pt states "I run low" Code(s): R53.1 - WEAKNESS (5) Chronic renal insufficiency, stage III (moderate) Current Visit: Yes Status: Chronic Assessment & Plan: eGFR is increased, 50.7. Code(s): N18.3 - CHRONIC KIDNEY DISEASE, STAGE 3 (MODERATE) (6) Anemia Current Visit: Yes Status: Acute Qualifiers: Anemia type: due to chronic kidney disease Chronic kidney disease stage: stage 3 (moderate) Qualified Code(s): N18.3 - Chronic kidney disease, stage 3 (moderate); D63.1 - Anemia in chronic kidney disease Assessment & Plan: stable at 9.2. Code(s): D64.9 - ANEMIA, UNSPECIFIED
[2019-04-16 14:58] LABS: White Blood Count 12.4 K/mm3 (4.0-10.5)
[2019-04-16] MEDS ORDERED: TROUGH DRUG LEVELS IJ ONE (21:30)
[2019-04-16] MEDS: TYLENOL EXTRA STRENGTH 500 MG PO PRN (21:48)
[2019-04-16] MEDS: ROCEPHIN 1 Gm-D5w 50 ml Bag** 1 G/50 ML IVPB IV SCH (21:48)
[2019-04-17] MEDS: TYLENOL 325 MG PO PRN (03:43)
[2019-04-17 06:25] LABS: Hematocrit 28.8 % (35-47); Hemoglobin 8.9 gm/dl (12.0-16.0); Mean Cell Volume 105.9 fl (78-100); Mean Corpuscular Hemoglobin 32.7 pg (26-32); Mean Corpuscular Hgb Concent. 30.9 g/dl (32-36); Mean Platelet Volume 11.7 fl (6-9.5); Platelet Count 404 K/mm3 (150-450); Red Blood Count 2.72 M/mm3 (4.1-5.4); Red Cell Distribution Width 13.8 % (11.5-14.0); White Blood Count 13.1 K/mm3 (4.0-10.5)
[2019-04-17 06:53] LABS: ANION GAP 7.9 MEQ/L (5-15); Calcium 8.7 mg/dL (8.4-10.2); Creatinine 1 1.16 mg/dL (0.52-1.04); Potassium 3.9 mmol/L (3.5-5.1)
[2019-04-17] MEDS: NEURONTIN 300 MG PO SCH ×2 (10:04→21:41)
[2019-04-17] MEDS: Protonix 40MG Tablet PO SCH (10:04)
[2019-04-17] MEDS: ZOCOR 20MG PO SCH (10:04)
[2019-04-17] MEDS: Flonase NASAL NS SCH ×2 (10:05→21:41)
[2019-04-17] MEDS: ENOXAPARIN SODIUM SQ SCH (10:05)
[2019-04-17] MEDS: SYNTHROID 112 MCG PO SCH (10:05)
[2019-04-17] MEDS: ULTRAM 50 MG PO SCH ×2 (10:05→21:41)
--- NOTE | 2019-04-17 15:19 | PCM.NOTE ---
Date and Time: 04/17/19 1516 Subjective Assessment: Her weakness feels about the same to her today. - Review of Systems Constitutional: No Fever Abdominal/Gastrointestinal: No Vomiting Objective Exam General Appearance: no apparent distress, alert Neurologic Exam: oriented x 3, cooperative Skin Exam: other (RLE with decreased edema, decreased erythema. Great toe is wrapped.) Wound Assessment: Skin/Wound Assessment Wound/Incision Assessment Start: 04/10/19 17: 03 Text: Status: Active Freq: Q6H Protocol: Document 04/17/19 14:00 CL (Rec: 04/17/19 14:07 CL [id number]) Wound/Incision Assessment Right Toe Wound Assessment Shift Assessment Wound Type WOUND/ULCER Wound Stage Non Pressure Wound Dressing Status Dry & Intact Drainage Amount None Comment PHYSICAL THERAPY did dressing change yesterday and dressing can stay on over the weekend per SAntwan PT. Dressing CDI. Left Elbow Wound Assessment Shift Assessment Wound Type Skin Tear Wound Stage Non Pressure Wound Dressing Status Dry & Intact Primary Dressing TEGADERM Wound Photo Photo Taken No Respiratory Exam: normal breath sounds, lungs clear, No crackles/rales, No rhonchi, No wheezing Cardiovascular Exam: regular rate/rhythm, normal heart sounds, No murmur Gastrointestinal/Abdomen Exam: soft, normal bowel sounds, tenderness (epigastrum ), No guarding, No rebound OBJECTIVE DATA Vital Signs: Vital Signs - 24 hr Temp Pulse Resp BP Pulse Ox 04/17/19 12:00 98.6 F 72 20 113/56 93 L 04/17/19 07:47 98.4 F 74 20 111/53 94 L 04/17/19 04:10 98.4 F 80 20 135/65 96 04/16/19 23:39 98.5 F 79 16 92/63 95 04/16/19 20:00 99.0 F 76 18 111/53 95 04/16/19 16:00 98.5 F 74 20 106/53 94 L Pain Assessment - Last Documented Pain Intensity 5 Pain Scale Used 0-10 Pain Scale Intake and Output: Intake & Output 04/15/19 04/16/19 04/17/19 04/18/19 11:59 11:59 11:59 11:59 Intake Total 1640 1165 2100 360 Output Total 1100 700 Balance 540 1165 1400 360 Lab Results: Lab Results-Last 24 Hours 08/06/2504/17/19 04/17/19 Range/Units 21:55 05:40 05:40 WBC 13.1 H (4.0-10.5) K/mm3 RBC 2.72 L (4.1-5.4) M/mm3 Hgb 8.9 L (12.0-16.0) gm/dl Hct 28.8 L (35-47) % MCV 105.9 H (78-100) fl MCH 32.7 H (26-32) pg MCHC 30.9 L (32-36) g/dl RDW 13.8 (11.5-14.0) % Plt Count 404 (150-450) K/mm3 MPV 11.7 H (6-9.5) fl Sodium 140 (137-145) mmol/L Potassium 3.9 (3.5-5.1) mmol/L Chloride 111 H (98-107) mmol/L Carbon Dioxide 25 (22-30) mmol/L Anion Gap 7.9 (5-15) MEQ/L BUN 26 H (7-17) mg/dL Creatinine 1.16 H (0.52-1.04) mg/dL Estimated GFR 47.7 ML/MIN Glucose 92 (74-106) mg/dL Calcium 8.7 (8.4-10.2) mg/dL Vancomycin Trough 20.90 H (10-20) ug/mL Multi-Disciplinary Progress Notes: Multi-Disciplinary Progress Notes 04/17/19 08:57 Pharmacy Note by Luigi Ballard Vancomycin Trough = 20.90 SR CR = 1.16 Decrease dose to 1.5 gm q24h. Recheck Trough Thursday [facility] Initialized on 04/17/19 08:57 - END OF NOTE Assessment/Plan (1) Cellulitis of right lower extremity Current Visit: Yes Status: Acute Assessment & Plan: on vancomycin Code(s): L03.115 - CELLULITIS OF RIGHT LOWER LIMB (2) Ulcer of toe of right foot Current Visit: Yes Status: Acute Qualifiers: Non-pressure ulcer stage: unspecified non-pressure ulcer stage Qualified Code(s): L97.519 - Non-pressure chronic ulcer of other part of right foot with unspecified severity Assessment & Plan: MRSA positive Code(s): L97.519 - NON-PRS CHRONIC ULCER OTH PRT RIGHT FOOT W UNSP SEVERITY (3) Systolic CHF, chronic Current Visit: Yes Status: Chronic Code(s): I50.22 - CHRONIC SYSTOLIC ( CONGESTIVE) HEART FAILURE (4) Weakness Current Visit: Yes Status: Acute Code(s): R53.1 - WEAKNESS (5) Chronic renal insufficiency, stage III (moderate) Current Visit: Yes Status: Chronic Code(s): N18.3 - CHRONIC KIDNEY DISEASE, STAGE 3 (MODERATE) (6) Anemia Current Visit: Yes Status: Acute Qualifiers: Anemia type: due to chronic kidney disease Chronic kidney disease stage: stage 3 (moderate) Qualified Code(s): N18.3 - Chronic kidney disease, stage 3 (moderate); D63.1 - Anemia in chronic kidney disease Code(s): D64.9 - ANEMIA, UNSPECIFIED (7) DVT prophylaxis Current Visit: Yes Status: Acute Assessment & Plan: on lovenox 40mg/d Code(s): Z29.9 - ENCOUNTER FOR PROPHYLACTIC MEASURES, UNSPECIFIED
[2019-04-17] MEDS: ROCEPHIN 1 Gm-D5w 50 ml Bag** 1 G/50 ML IVPB IV SCH (21:38)
[2019-04-17] MEDS ORDERED: VANCOCIN 1 GM VIAL*** 1.5 GM in Sodium Chloride 0.9% 500 ML 500 ML IV SCH (22:00)
[2019-04-18] MEDS: TYLENOL 325 MG PO PRN (03:38)
--- NOTE | 2019-04-18 08:41 | PCM.DS ---
Discharge Summary Date of Admission: 04/11/19 08:17 Admitting Physician: DAVID BINGHAM Primary Care Provider: DAVID BINGHAM Allergies Allergies tetracycline Allergy (Verified 04/10/19 11:53) Hospital Summary - Hospital Course Hospital Course: patient was admitted with redness and pain in right lower leg, found to be weak. she was treated for cellulitis and ulceration of right toe, culture +MRSA and klebsiella - Vitals & Intake/Output Vital Signs: Vital Signs Temperature 98.2 F 04/18/19 03:49 Pulse Rate 77 04/18/19 03:49 Respiratory Rate 18 04/18/19 03:49 Blood Pressure 127/58 04/18/19 03:49 O2 Sat by Pulse Oximetry 98 04/18/19 03:49 Intake & Output: Intake & Output 04/15/19 04/16/19 04/17/19 04/18/19 11:59 11:59 11:59 11:59 Intake Total 1640 1165 2100 1925 Output Total 1100 700 Balance 540 1165 1400 1925 - Lab Result Diagrams: 04/17/19 05:40 04/17/19 05:40 Micro Results-Entire Visit: Microbiology 04/11/19 08:17 Wound Culture - Final Foot - Right Bottom Klebsiella Pneumoniae Methicillin Resist Staph Aur 04/10/19 20:49 Blood Culture Gram Stain - Final Blood Not Reportable Blood Culture - Final NO GROWTH 04/10/19 20:39 Blood Culture Gram Stain - Final Blood Not Reportable Blood Culture - Final NO GROWTH 04/10/19 12:31 Urine Culture - Final Catherized NO GROWTH - Procedures and Test Procedures and Tests throughout Hospitalization: Therapy Orders & Screens 04/12/19 08:33 PT Eval & Treat ( Order) ROUTINE Reason for Eval:: R great toe wound Diagnosis: CELLULITIS RLE, WOUND R TOE Discharge Exam General Appearance: no apparent distress, alert Neurologic Exam: alert, oriented x 3 Eye Exam: PERRL, EOMI, eyes nml inspection Respiratory Exam: normal breath sounds, lungs clear, No respiratory distress Cardiovascular Exam: regular rate/rhythm, normal heart sounds Gastrointestinal/Abdomen Exam: soft, No tenderness, No mass Extremity Exam: other (mild redness, no warmth to right lower leg. ulceration clean with no drainage to right great toe) Wound Assessment: Skin/Wound Assessment Wound/Incision Assessment Start: 04/10/19 17: 03 Text: Status: Active Freq: Q6H Protocol: Document 04/18/19 03:30 LB (Rec: 04/18/19 03:45 LB [id number]) Wound/Incision Assessment Right Toe Wound Assessment Shift Assessment Wound Type WOUND/ULCER Wound Stage Non Pressure Wound Dressing Status Dry & Intact Comment PT treating, dressing in place CDI Left Elbow Wound Assessment Shift Assessment Wound Type Skin Tear Wound Stage Non Pressure Wound Dressing Status Dry & Intact Primary Dressing TEGADERM Wound Photo Photo Taken Yes Comment: in chart Final Diagnosis/Problem List - Final Discharge Diagnosis/Problem (1) Cellulitis of right lower extremity Current Visit: Yes Status: Acute Code(s): L03.115 - CELLULITIS OF RIGHT LOWER LIMB (2) Ulcer of toe of right foot Current Visit: Yes Status: Acute Assessment & Plan: home on po bactrim, f/u with Dr Wheat Code(s): L97.519 - NON-PRS CHRONIC ULCER OTH PRT RIGHT FOOT W UNSP SEVERITY (3) Systolic CHF, chronic Current Visit: Yes Status: Chronic Code(s): I50.22 - CHRONIC SYSTOLIC ( CONGESTIVE) HEART FAILURE (4) Weakness Current Visit: Yes Status: Acute Assessment & Plan: home health referral Code(s): R53.1 - WEAKNESS - Discharge Disposition: Home, Self-Care Condition: Stable Prescriptions: New Sulfamethoxazole/Trimethoprim [Bactrim 400-80 mg Tablet] 1 each PO BID #14 tablet Continue PANTOPRAZOLE 40 mg Tablet [Protonix 40MG Tablet] 40 mg PO QAM Tramadol HCl 50 mg [Ultram 50 mg] 100 mg PO BID Potassium Chloride [Klor-Con M10] 10 meq PO TID Levothyroxine Sodium [Levoxyl] 112 mcg PO DAILY Gabapentin 300 mg PO BID Furosemide 80 mg PO DAILY Fluticasone Propionate [Flonase NASAL] 16 gm NS BID Atorvastatin Calcium [Lipitor] 20 mg PO DAILY Follow up with: ALINA WHEAT [PODIATRY STAFF] - 04/18/19 DAVID BINGHAM MD [Primary Care Provider] - 04/25/19
[2019-04-18 09:12] VITALS: BP 112/55; PULSE 82; O2SAT 94
[2019-04-18] MEDS: Flonase NASAL NS SCH (09:26)
[2019-04-18] MEDS: SYNTHROID 112 MCG PO SCH (09:26)
[2019-04-18] MEDS: ULTRAM 50 MG PO SCH (09:26)
[2019-04-18] MEDS: NEURONTIN 300 MG PO SCH (09:26)
[2019-04-18] MEDS: Protonix 40MG Tablet PO SCH (09:26)
[2019-04-18] MEDS: ZOCOR 20MG PO SCH (09:27)
[2019-04-18] MEDS: ENOXAPARIN SODIUM SQ SCH (09:27)
== END 2019-04-18 13:25 | disposition home or self-care (01) | DRG 603 ==
LOC: ED 11:36 → MED SURG 15:54 → OBSVTOIN 04-11 08:17
PROVIDERS: ADMIT Family Medicine; ATTEND Family Medicine
DX: L03.115 Cellulitis of right lower limb (principal); I13.0 Hypertensive heart and chronic kidney disease with heart failure and stage 1 through stage 4 chronic kidney disease, or unspecified chronic kidney disease; L97.519 Non-pressure chronic ulcer of other part of right foot with unspecified severity; B95.62 Methicillin resistant Staphylococcus aureus infection as the cause of diseases classified elsewhere; B96.1 Klebsiella pneumoniae [K. pneumoniae] as the cause of diseases classified elsewhere; N18.3 Chronic kidney disease, stage 3 (moderate); R53.1 Weakness; E86.0 Dehydration; Z79.899 Other long term (current) drug therapy; S51.012A Laceration without foreign body of left elbow, initial encounter; E78.00 Pure hypercholesterolemia, unspecified; M25.561 Pain in right knee; D64.9 Anemia, unspecified
CPT/HCPCS: 36415; 70450; 80048; 80053; 80202; 81001; 85025; 85027; 87040; 87070; 87077; 87086; 87186; 90471; 93926; 93971; 96360; 97110; 97161; 97530; 99291; G0378; 36000; 71045; 90714; 99285; J0696; J1650; J3370; A9270-GY

== ENCOUNTER 2019-05-06 12:16 | Emergency (ER) | payer MEDICARE ==
[2019-05-06] MEDS ORDERED: Sodium Chloride 0.9% 1000 ML 1,000 ML IV STA (12:18)
--- NOTE | 2019-05-06 12:22 | ERPHSYRPT ---
- History of Present Illness Time Seen by Provider: 05/06/19 12:20 Source: patient Physician History: dizzy today and fell back striking her head, mild ache and neck pain, no loc, no bleeding, no NV, no other injury Allergies/Adverse Reactions: tetracycline Allergy (Verified 05/06/19 12:32) Home Medications: Atorvastatin Calcium [Lipitor] 20 mg PO DAILY 04/10/19 [History] Fluticasone Propionate [Flonase NASAL] 16 gm NS BID 04/10/19 [History] Furosemide 80 mg PO BID 04/10/19 [History] Gabapentin 300 mg PO BID 04/10/19 [History] Levothyroxine Sodium [Levoxyl] 112 mcg PO DAILY 04/10/19 [History] PANTOPRAZOLE 40 mg Tablet [Protonix 40MG Tablet] 40 mg PO QAM 04/10/19 [ History] Potassium Chloride [Klor-Con M10] 10 meq PO TID 04/10/19 [History] Tramadol HCl 50 mg [Ultram 50 mg] 100 mg PO BID 04/10/19 [History] Hx Tetanus, Diphtheria Vaccination/Date Given: Yes (ER today) Hx Influenza Vaccination/Date Given: Yes Hx Pneumococcal Vaccination/Date Given: Yes - Review of Systems Constitutional: No Fever Eyes: No Eye Redness Ears, Nose, & Throat: No Epistaxis Respiratory: No Dyspnea Cardiac: No Chest Pain Abdominal/Gastrointestinal: No Abdominal Pain Genitourinary Symptoms: No Dysuria Musculoskeletal: Neck Pain, No Back Pain Skin: No Symptoms Neurological: Dizziness - Past Medical History Pertinent Past Medical History: Yes (prior hx similar) Neurological History: No Pertinent History ENT History: No Pertinent History Cardiac History: High Cholesterol, Hypertension Respiratory History: No Pertinent History Endocrine Medical History: Hypothyroidism Musculoskeletal History: Arthritis GI Medical History: GERD History: No Pertinent History Psycho-Social History: No Pertinent History Female Reproductive Disorders: No Pertinent History - Past Surgical History Past Surgical History: Yes Cardiac: No Pertinent History Respiratory: No Pertinent History Gastrointestinal: No Pertinent History Genitourinary: No Pertinent History Musculoskeletal: Orthopedic Surgery Female Surgical History: Hysterectomy, Section Other Surgical History: right hip and right hand - Social History Smoking Status: Former smoker Exposure to second hand smoke: No Drug Use: none Patient Lives Alone: No - Nursing Vital Signs Nursing Vital Signs: Initial Vital Signs Temperature 97.1 F 05/06/19 12:21 Pulse Rate 72 05/06/19 12:21 Blood Pressure 120/59 05/06/19 12:21 O2 Sat by Pulse Oximetry 98 05/06/19 12:21 Pain Scale Pain Intensity 5 - Joanna Coma Score Best Eye Response ([place]): (4) open spontaneously Best Verbal Response (Joanna): (5) oriented Best Motor Response (Joanna): (6) obeys commands [place] Total: 15 - Physical Exam General Appearance: no apparent distress Eye Exam: bilateral eye: PERRL, EOMI ENT Exam: airway nml Neck Exam: supple, full range of motion, muscle spasm, tender lateral Cardiovascular/Respiratory Exam: chest non-tender, regular rate/rhythm Gastrointestinal/Abdominal Exam: soft, non tender, no distention Back Exam: No vertebral tenderness Extremity Exam: normal range of motion Mental Status Exam: alert, oriented x 3, 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: normal hearing, normal speech, PERRL Skin Exam: No cyanosis - Course Nursing assessment & vital signs reviewed: Yes EKG Interpreted by Me: Sinus Rhythm - CT Exams Head CT Interpretation: Negative, Discussed w/radiologist Cervical Spine CT Interpretation: Negative, Discussed w/radiologist Ordered Tests: Active Orders 24 hr Category Date Time Status Plug Wirer STAT Care 05/06/19 12:19 Active EKG-ER Only STAT Care 05/06/19 12:18 Active IV Insertion STAT Care 05/06/19 12:53 Active Orthostatic Vital Signs STAT Care 05/06/19 14:05 Active CERVICAL SPINE WO CONTRAST [CT] Stat Exams 05/06/19 12:18 Completed HEAD WITHOUT CONTRAST [CT] Stat Exams 05/06/19 12:18 Completed CBC Stat Lab 05/06/19 Completed CMP Stat Lab 05/06/19 12:40 Completed TROPONIN Q3H Lab 05/06/19 12:40 Completed TROPONIN Q3H Lab 05/06/19 15:30 Ordered TROPONIN Q3H Lab 05/06/19 18:30 Ordered TROPONIN Q3H Lab 05/06/19 21:30 Ordered TROPONIN Q3H Lab 05/07/19 00:30 Ordered Medication Summary Discontinued Medications Generic Name Dose Route Start Last Admin Trade Name Freq PRN Reason Stop Dose Admin Sodium Chloride 1,000 mls @ 999 mls/hr 05/06/19 12:18 05/06/19 13:53 Sodium Chloride 0.9% 1000 Ml IV 05/06/19 13:18 Infused .Q1H1M STA Infusion Sodium Chloride Confirm 05/06/19 12:45 Sodium Chloride 0.9% 1000 Ml Administered 05/06/19 12:46 Dose 1,000 mls @ ud .ROUTE .[facility] Lab/Rad Data: Laboratory Result Diagrams 05/06/19 Unknown 05/06/19 12:40 Laboratory Results 05/06/19 05/06/19 05/06/19 Range/Units Unknown 12:40 12:40 WBC 11.7 H (4.0-10.5) K/mm3 RBC 3.31 L (4.1-5.4) M/mm3 Hgb 10.9 L (12.0-16.0) gm/dl Hct 34.9 L (35-47) % MCV 105.4 H (78-100) fl MCH 32.9 H (26-32) pg MCHC 31.2 L (32-36) g/dl RDW 14.7 H (11.5-14.0) % Plt Count 436 (150-450) K/mm3 MPV 12.7 H (6-9.5) fl Sodium 140 (137-145) mmol/L Potassium 3.7 (3.5-5.1) mmol/L Chloride 104 (98-107) mmol/L Carbon Dioxide 27 (22-30) mmol/L Anion Gap 12.1 (5-15) MEQ/L BUN 24 H (7-17) mg/dL Creatinine 1.37 H (0.52-1.04) mg/dL Estimated GFR 39.3 ML/MIN Glucose 93 (74-106) mg/dL Calcium 9.3 (8.4-10.2) mg/dL Total Bilirubin 0.50 (0.2-1.3) mg/dL AST 34 (14-36) U/L ALT 17 (0-35) U/L Alkaline Phosphatase 55 (38-126) U/L Troponin I < 0.012 (0.000-0.034) ng/mL Serum Total Protein 6.9 (6.3-8.2) g/dL Albumin 4.2 (3.5-5.0) g/dL - Progress Progress: improved Progress Note: 08/30/19 14:45 see your doctor, return if worse, oral fluids, continue present medical regimen - Departure Departure Disposition: Home Clinical Impression: Dizziness Condition: Stable Critical Care Time: No Referrals: DAVID BINGHAM MD [Primary Care Provider] - Instructions: Preventing Falls
[2019-05-06] MEDS ORDERED: Sodium Chloride 0.9% 1000 ML 1,000 ML ONE (12:45)
[2019-05-06 13:04] LABS: ALBUMIN 4.2 g/dL (3.5-5.0); ANION GAP 12.1 MEQ/L (5-15); BILIRUBIN,TOTAL 0.5 mg/dL (0.2-1.3); Calcium 9.3 mg/dL (8.4-10.2); Creatinine 1 1.37 mg/dL (0.52-1.04); Potassium 3.7 mmol/L (3.5-5.1); Total Protein 6.9 g/dL (6.3-8.2)
--- NOTE | 2019-05-06 13:33 | XRAY ---
Indication: Neck pain following fall. Multiple contiguous axial images obtained through the cervical spine. Sagittal and coronal reformatted images obtained. Comparison: None. Age-related osteopenia. Axial images negative for acute fracture, suspicious bony lesions, or spinal canal stenosis. Minimal C6-C7 endplate spurring. Also left C3-C4 degenerative facet hypertrophy. Sagittal and coronal reformatted images demonstrates cervical lordotic reversal, positional versus paraspinal spasm. Minimal C6-C7 disc space narrowing. No acute compression fracture, subluxation, or jumped facet. Normal appearing craniocervical junction. Visualized noncontrasted soft tissues unremarkable. Impression: 1. Cervical lordotic reversal, positional versus paraspinal spasm. 2. Negative acute fracture/subluxation. 3. Osteopenia and multilevel degenerative changes. CTDI 49.57
--- NOTE | 2019-05-06 13:36 | XRAY ---
Indication: Head injury following fall. Multiple contiguous axial images obtained through the head without contrast. Comparison: April 10, 2019. Again age-appropriate global atrophy and mild periventricular degenerative micro-ischemia bilaterally. No acute intracranial hemorrhage, abnormal extra-axial fluid collection, or mass effect. Fourth ventricle is midline without hydrocephalus. Bony calvarium intact. Visualized paranasal sinuses and mastoid air cells are clear. Impression: Stable nonacute senile brain. CTDI 51.47
[2019-05-06 13:45] VITALS: BP 117/59; PULSE 80; O2SAT 97
[2019-05-06 14:30] LABS: Hematocrit 34.9 % (35-47); Hemoglobin 10.9 gm/dl (12.0-16.0); Mean Cell Volume 105.4 fl (78-100); Mean Corpuscular Hemoglobin 32.9 pg (26-32); Mean Corpuscular Hgb Concent. 31.2 g/dl (32-36); Mean Platelet Volume 12.7 fl (6-9.5); Platelet Count 436 K/mm3 (150-450); Red Blood Count 3.31 M/mm3 (4.1-5.4); Red Cell Distribution Width 14.7 % (11.5-14.0); White Blood Count 11.7 K/mm3 (4.0-10.5)
== END 2019-05-06 15:33 | disposition home or self-care (01) ==
LOC: ED 12:16
DX: R42 Dizziness and giddiness (principal)
CPT/HCPCS: 36000; 36415; 70450; 72125; 80053; 84484; 85027; 93005; 93041; 96360; 99284

== ENCOUNTER 2020-05-20 14:15 | Emergency (ER) | payer MEDICARE ==
--- NOTE | 2020-05-20 14:41 | ERPHSYRPT ---
- History of Present Illness Time Seen by Provider: 05/20/20 14:40 Source: patient Exam Limitations: no limitations Patient Subjective Stated Complaint: L hip pain Triage Nursing Assessment: pt to ED c/o L hip pain r.t fall last month. was seen at PCP and had x ray pf back done, showed arthritis. did not get imaging of hips done at that time reported by pt. rates 10/10 pain at times, not as intense right now. ambulates with cane at home. assist x 1 [address]. no obvious deformity of injured area. Physician History: This is an 80-year-old white female who fell approximately 1 month ago and has been complaining of left hip pain. Patient was seen at her PCPs office on 05/02/2020. Patient had lumbar x-rays performed as well as left hip and pelvis x-rays. These were negative for any acute fracture or dislocation. Patient states her Tylenol helps a little bit but does not control the plane at night. Patient has not fallen again since her last fall a month ago Occurred: other (1 month ago) Reason for Fall: tripped Injuries/Pain Location: pelvis (Left hip) Loss of Consciousness: no loss of consciousness Severity of Pain-Max: moderate Severity of Pain-Current: moderate Modifying Factors: Improves With: movement Associated Symptoms (Fall): No abdominal pain, No back pain, No chest pain, No shortness of breath Allergies/Adverse Reactions: tetracycline Allergy (Verified 05/20/20 14:44) Home Medications: Atorvastatin Calcium [Lipitor] 20 mg PO DAILY 04/10/19 [History] Fluticasone Propionate [Flonase NASAL] 16 gm NS BID 04/10/19 [History] Furosemide 80 mg PO BID 04/10/19 [History] Gabapentin 300 mg PO BID 04/10/19 [History] Levothyroxine Sodium [Levoxyl] 112 mcg PO DAILY 04/10/19 [History] PANTOPRAZOLE 40 mg Tablet [Protonix 40MG Tablet] 40 mg PO QAM 04/10/19 [History] Potassium Chloride [Klor-Con M10] 10 meq PO TID 04/10/19 [History] Tramadol HCl 50 mg [Ultram 50 mg] 100 mg PO BID 04/10/19 [History] Hx Tetanus, Diphtheria Vaccination/Date Given: Yes (ER today) Hx Influenza Vaccination/Date Given: Yes Hx Pneumococcal Vaccination/Date Given: Yes Travel Risk - International Travel Have you traveled outside of the country in past 3 weeks: No - Coronavirus Screening Are you exhibiting any of the following symptoms?: No Close contact with a COVID-19 positive Pt in past 14-21 Days: No - Review of Systems Constitutional: No Symptoms Eyes: No Symptoms Ears, Nose, & Throat: No Symptoms Respiratory: No Symptoms Cardiac: No Symptoms Abdominal/Gastrointestinal: No Symptoms Genitourinary Symptoms: No Symptoms Musculoskeletal: Fall, Injury (Left hip pain) Skin: No Symptoms Neurological: No Symptoms Psychological: No Symptoms Endocrine: No Symptoms Hematologic/Lymphatic: No Symptoms Immunological/Allergic: No Symptoms All Other Systems: Reviewed and Negative - Past Medical History Pertinent Past Medical History: Yes (prior hx similar) Neurological History: No Pertinent History ENT History: No Pertinent History Cardiac History: High Cholesterol, Hypertension Respiratory History: No Pertinent History Endocrine Medical History: Hypothyroidism Musculoskeletal History: Arthritis GI Medical History: GERD History: No Pertinent History Psycho-Social History: No Pertinent History Female Reproductive Disorders: No Pertinent History - Past Surgical History Past Surgical History: Yes Neuro Surgical History: No Pertinent History Cardiac: No Pertinent History Respiratory: No Pertinent History Gastrointestinal: No Pertinent History Genitourinary: No Pertinent History Musculoskeletal: Orthopedic Surgery Female Surgical History: Hysterectomy, Section Other Surgical History: right hip and right hand - Social History Smoking Status: Former smoker Exposure to second hand smoke: No Drug Use: none Patient Lives Alone: No () - Female History Hx Now: No - Nursing Vital Signs Nursing Vital Signs: Initial Vital Signs Temperature 98.9 F 05/20/20 14:31 Pulse Rate 83 05/20/20 14:31 Respiratory Rate 18 05/20/20 14:31 Blood Pressure 132/63 05/20/20 14:31 O2 Sat by Pulse Oximetry 99 05/20/20 14:31 Pain Scale Pain Intensity [Left Hip] 10 Pain Intensity 5 - Joanna Coma Score Best Eye Response ([place]): (4) open spontaneously Best Verbal Response (Joanna): (5) oriented Best Motor Response (Joanna): (6) obeys commands Joanna Total: 15 - Physical Exam General Appearance: no apparent distress, alert, anxiety Head Injury: no evidence of injury Eye Exam: PERRL/EOMI, eyes nml inspection ENT Exam: airway nml, nml ext.inspection Neck Exam: supple, trachea midline, full range of motion, normal alignment, normal inspection Respiratory/Chest Exam: normal breath sounds, No chest tenderness, No respiratory distress Cardiovascular Exam: normal heart sounds, regular rate/rhythm Gastrointestinal Exam: soft, normal bowel sounds, No tenderness Rectal Exam: not done Back Exam: normal inspection, normal range of motion, No CVA tenderness, No vertebral tenderness Extremity Exam: normal inspection, normal range of motion, pelvis stable, bony point tenderness (Left hip) Neurologic Exam: alert, oriented x 3, 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 X-ray of left hip reveals no acute fracture or dislocation. There is no change on the left hip x- ray from that x-ray taken on 05/02/2020. X-ray of left femur reveals no evidence of any acute fracture or dislocation. Counseled pt/family regarding: diagnosis, need for follow-up, rad results - Departure Departure Disposition: Home Clinical Impression: Left hip pain Condition: Stable Critical Care Time: No Referrals: DAVID BINGHAM MD [Primary Care Provider] - Additional Instructions: Stop your tramadol. May use plain Tylenol and ibuprofen during the day. Use your [place] tablets as prescribed if you require stronger medication. Follow-up with your primary care physician for further management. Prescriptions: Hydrocodone/APAP 5-325 Tab^^^ [[place] 5-325 Tablet^^^] 1 tab PO Q12H PRN PRN #6 tablet MDD 2 PRN Reason: Pain
[2020-05-20 15:19] VITALS: BP 116/77; PULSE 74
[2020-05-20] MEDS ORDERED: NORCO 5/325 MG PO ONE (15:20)
[2020-05-20 15:27] VITALS: O2SAT 99
[2020-05-20] MEDS ORDERED: NORCO 5/325 MG ONE (15:27)
--- NOTE | 2020-05-20 16:42 | XRAY ---
Indication: Pain following fall one month ago. Comparison: May 02, 2020. AP pelvis and 2 view left hip again demonstrates mild osteopenia and old right proximal femur fracture with partially visualized orthopedic hardware. No new/acute bony, articular, or soft tissue abnormalities.
--- NOTE | 2020-05-20 16:42 | XRAY ---
Indication: Pain following fall one month ago. Comparison: None 2 view left femur demonstrates mild osteopenia and moderate tricompartmental knee degenerative changes. No other bony, articular, or soft tissue abnormalities.
== END 2020-05-20 15:56 | disposition home or self-care (01) ==
LOC: ED 14:15
DX: M25.552 Pain in left hip (principal); W19.XXXD Unspecified fall, subsequent encounter
CPT/HCPCS: 73502; 73552; 99283; A9270-GY

== ENCOUNTER 2020-06-13 09:40 | Day surgery (SDC) | payer MEDICARE ==
[2020-06-13] MEDS ORDERED: Depo-Medrol 40 MG/ML IM ONE (09:41)
[2020-06-13] MEDS ORDERED: Sodium Chloride 0.9(Preservative Free) 10 ML IJ ONE (09:41)
[2020-06-13] MEDS ORDERED: BUPIVACAINE 0.5% VIAL IJ ONE (09:41)
[2020-06-13] MEDS ORDERED: Ketamine HCl 50 MG/ML ONE (09:44)
[2020-06-13] MEDS ORDERED: DIPRIVAN 200 MG/20 ML IV ONE (09:44)
--- NOTE | 2020-06-13 13:39 | XRAY ---
Indication: Left L3-L5 transforaminal EH. Intraoperative fluoroscopy provided for 58 seconds. 2 digital spot images submitted for interpretation demonstrates posterior needle tip projecting over the expected left L4 and L5 nerve roots. Small amount of contrast injected for needle tip placement. Correlate with intraoperative findings/report.
--- NOTE | 2020-06-13 13:39 | XRAY ---
Indication: Left SI joint injection. Intraoperative fluoroscopy provided for 8 seconds. 2 digital spot images submitted for interpretation demonstrates posterior needle tip projecting over the inferior left SI joint. Correlate with intraoperative findings/report.
--- NOTE | 2020-06-13 13:41 | XRAY ---
58 seconds fluoroscopy time in surgery for left L3-L5 transforaminal EH.
--- NOTE | 2020-06-13 13:41 | XRAY ---
8 seconds fluoroscopy time in surgery for left SI joint injection.
[2020-06-13] MEDS ORDERED: Lactated Ringers 1,000 ML IV ONE (13:45)
== END 2020-06-13 13:16 | disposition home or self-care (01) ==
LOC: SDC-PAIN 09:40
PROVIDERS: ATTEND Psychiatry & Neurology Pain Medicine
DX: M46.1 Sacroiliitis, not elsewhere classified (principal); M54.16 Radiculopathy, lumbar region; E03.9 Hypothyroidism, unspecified; C95.90 Leukemia, unspecified not having achieved remission; Z79.899 Other long term (current) drug therapy
CPT/HCPCS: 72020; 72100; 77002; 77003; 99100; J1030; J2704

== ENCOUNTER 2021-01-16 13:53 | Day surgery (SDC) | payer MEDICARE ==
[2021-01-16] MEDS ORDERED: Xylocaine 1% Vial 30 ML PF IJ ONE (13:54)
[2021-01-16] MEDS ORDERED: Depo-Medrol 40 MG/ML IM ONE (13:54)
[2021-01-16] MEDS ORDERED: Sodium Chloride 0.9(Preservative Free) 10 ML IJ ONE (13:54)
[2021-01-16] MEDS ORDERED: Lactated Ringers 1,000 ML IV ONE (14:42)
[2021-01-16] MEDS ORDERED: DIPRIVAN 200 MG/20 ML IV ONE (15:48)
--- NOTE | 2021-01-16 17:40 | XRAY ---
30 seconds fluoroscopy time in surgery for lumbar EH.
== END 2021-01-16 16:15 | disposition home or self-care (01) ==
LOC: SDC-PAIN 13:53
PROVIDERS: ATTEND Psychiatry & Neurology Pain Medicine
DX: M54.16 Radiculopathy, lumbar region (principal); E03.9 Hypothyroidism, unspecified; D72.829 Elevated white blood cell count, unspecified; Z79.899 Other long term (current) drug therapy
CPT/HCPCS: 62323; 72100; 77003; J1030; J2001; J2704; Q9966

== ENCOUNTER 2021-02-27 13:12 | Day surgery (SDC) | payer MEDICARE ==
[2021-02-27] MEDS ORDERED: Depo-Medrol 40 MG/ML IM ONE (13:13)
[2021-02-27] MEDS ORDERED: BUPIVACAINE 0.5% VIAL IJ ONE (13:13)
[2021-02-27] MEDS ORDERED: DIPRIVAN 200 MG/20 ML IV ONE (14:43)
[2021-02-27] MEDS ORDERED: Lactated Ringers 1,000 ML IV ONE (16:30)
--- NOTE | 2021-02-28 11:35 | XRAY ---
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
--- NOTE | 2021-02-28 11:44 | XRAY ---
6 seconds fluoroscopy time in surgery for intra-articular and pes aserinus of the left knee.
== END 2021-02-27 15:13 | disposition home or self-care (01) ==
LOC: SDC-PAIN 13:12
PROVIDERS: ATTEND Psychiatry & Neurology Pain Medicine
DX: M17.0 Bilateral primary osteoarthritis of knee (principal); E03.9 Hypothyroidism, unspecified; Z79.899 Other long term (current) drug therapy
CPT/HCPCS: 20610; 73560; 77002; J1030; J2704; Q9966

== ENCOUNTER 2021-05-22 16:20 | Day surgery (SDC) | payer MEDICARE ==
[2021-05-22] MEDS ORDERED: Depo-Medrol 40 MG/ML IM ONE (16:21)
[2021-05-22] MEDS ORDERED: BUPIVACAINE 0.5% VIAL IJ ONE (16:21)
[2021-05-22] MEDS ORDERED: DIPRIVAN 200 MG/20 ML IV ONE (17:26)
[2021-05-22] MEDS ORDERED: Lactated Ringers 1,000 ML IV ONE (17:49)
--- NOTE | 2021-05-22 19:06 | XRAY ---
Indication: Left knee injection. Intraoperative fluoroscopy provided for 3 seconds. Single digital spot image submitted for interpretation demonstrates needle tip projecting over the left femur intercondylar notch. Small amount of contrast injected for needle tip placement. Correlate with intraoperative findings/report.
--- NOTE | 2021-05-22 19:16 | XRAY ---
Indication: Right knee injection. Intraoperative fluoroscopy provided for 8 seconds. Single digital spot image submitted for interpretation demonstrates needle tip projecting over the right femur intercondylar notch. Small amount of contrast injected for needle tip placement. Correlate with intraoperative findings/report.
--- NOTE | 2021-05-23 08:40 | XRAY ---
3 seconds fluoroscopy time in surgery for intra-articular injection of the left knee.
--- NOTE | 2021-05-23 08:50 | XRAY ---
8 seconds fluoroscopy time in surgery for intra-articular injection of the right knee.
== END 2021-05-22 17:55 | disposition home or self-care (01) ==
LOC: SDC-PAIN 16:20
PROVIDERS: ATTEND Psychiatry & Neurology Pain Medicine
DX: M17.0 Bilateral primary osteoarthritis of knee (principal); Z79.899 Other long term (current) drug therapy
CPT/HCPCS: 20610; 73560; 77002; J1030; J2704; Q9966

== ENCOUNTER 2021-06-18 17:02 | Emergency (ER) | payer MEDICARE ==
[2021-06-18] MEDS ORDERED: TYLENOL EXTRA STRENGTH 500 MG PO PRN (17:42)
[2021-06-18] MEDS ORDERED: TYLENOL EXTRA STRENGTH 500 MG ONE (17:55)
[2021-06-18] MEDS ORDERED: TYLENOL EXTRA STRENGTH 500 MG PO ONE (17:56)
--- NOTE | 2021-06-18 18:26 | ERPHSYRPT ---
- History of Present Illness Time Seen by Provider: 06/18/21 17:10 Source: patient Exam Limitations: no limitations Patient Subjective Stated Complaint: FELL AT HOME APPROX 10 AM. DOES NOT RECALL HITTING ANYTHING OTHER THAN HER BOTTOM ON FLOOR. DENIES HITTING HEAD OR ANY L IMBS. PAIN TO LEFT HAND AND THUMB AREA. PAIN TO LEFT RIB AREA JUST UNDERNEATH BREAST. PAIN WITH DEEP BREATHS TO LEFT SIDE. Triage Nursing Assessment: ALERT AND ORIENTED. LIMITED RANGE OF MOTION TO LEFT THUMB. MILD BRUISING TO LEFT MID RIBS. LUNG SOUNDS CLEAR. Physician History: Patient is an 81-year-old female presents to our ED with complaints of right rib pain and right thumb pain. Patient states she was packing her belongings in preparation for a trip to [place] when she lost her balance and fell forward. Patient hit her right rib and hyper extended her right thumb. There is no LOC. No BHT. No neck pain. Cervical spine cleared clinically. Patient states her fall was not associated with any neuro cardiovascular symptomology. No chest pain or shortness of breath. No nausea vomiting or diaphoresis. No numbness tingling or weakness. No dizziness. Injury occurred prior to arrival. Family was present. Patient has a history of severe arthritis and has difficulty moving and lifting herself off the ground. Patient is currently asymptomatic except for tenderness to her right ribs and right thumb. Patient voices no other complaints or concerns at this time. Timing/Duration: today Severity: moderate Modifying Factors: Improves With: nothing Associated Symptoms: denies symptoms, No nausea, No vomiting, No abdominal pain, No shortness of breath, No diaphoresis, No cough, No chills, No chest pain, No fever, No headaches, No loss of appetite, No malaise, No syncope, No seizure, No weakness Allergies/Adverse Reactions: tetracycline Allergy (Verified 05/20/20 14:44) Home Medications: Atorvastatin Calcium [Lipitor] 20 mg PO DAILY 04/10/19 [History] Furosemide 40 mg PO BID 04/10/19 [History] Gabapentin 300 mg PO BID 04/10/19 [History] Levothyroxine Sodium [Levoxyl] 112 mcg PO DAILY 04/10/19 [History] PANTOPRAZOLE 40 mg Tablet [Protonix 40MG Tablet] 40 mg PO QAM 04/10/19 [History] Potassium Chloride [Klor-Con M10] 30 meq PO TID 04/10/19 [History] Tramadol HCl 50 mg [Ultram 50 mg] 100 mg PO BID 04/10/19 [History] Docusate Sodium [Colace] 100 mg PO DAILY 06/18/21 [History] Meclizine HCl 12.5 mg PO DAILY 06/18/21 [History] Hx Tetanus, Diphtheria Vaccination/Date Given: Yes (ER today) Hx Influenza Vaccination/Date Given: No Hx Pneumococcal Vaccination/Date Given: Yes Travel Risk - International Travel Have you traveled outside of the country in past 3 weeks: No - Coronavirus Screening Are you exhibiting any of the following symptoms?: No Close contact with a COVID-19 positive Pt in past 14-21 Days: No - Vaccine Status Have you recieved a Covid-19 vaccination: Yes [employer]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 - Vaccination Dates Date of 2cond Vaccination (if applicable): 12/06/20 - Review of Systems Constitutional: No Symptoms, No Fever, No Chills Eyes: No Symptoms Ears, Nose, & Throat: No Symptoms Respiratory: No Symptoms, No Cough, No Dyspnea Cardiac: No Symptoms, No Chest Pain, No Edema, No Syncope Abdominal/Gastrointestinal: No Symptoms, No Abdominal Pain, No Nausea, No Vomiting, No Diarrhea Genitourinary Symptoms: No Symptoms, No Dysuria Musculoskeletal: No Symptoms, No Back Pain, No Neck Pain Skin: No Symptoms, No Rash Neurological: No Symptoms, No Dizziness, No Focal Weakness, No Sensory Changes Psychological: No Symptoms Endocrine: No Symptoms Hematologic/Lymphatic: No Symptoms Immunological/Allergic: No Symptoms All Other Systems: Reviewed and Negative - Past Medical History Pertinent Past Medical History: Yes Neurological History: No Pertinent History ENT History: No Pertinent History Cardiac History: High Cholesterol, Hypertension Respiratory History: No Pertinent History Endocrine Medical History: Hypothyroidism Musculoskeletal History: Arthritis GI Medical History: GERD History: No Pertinent History Psycho-Social History: No Pertinent History Female Reproductive Disorders: No Pertinent History Other Medical History: INCONTINENCE OF URINE - Past Surgical History Past Surgical History: Yes Neuro Surgical History: No Pertinent History Cardiac: No Pertinent History Respiratory: No Pertinent History Gastrointestinal: No Pertinent History Genitourinary: No Pertinent History Musculoskeletal: Orthopedic Surgery Female Surgical History: Hysterectomy, Section Other Surgical History: right hip and right hand 5 YEARS AGO - Social History Smoking Status: Former smoker Exposure to second hand smoke: No Drug Use: none Patient Lives Alone: No () - Nursing Vital Signs Nursing Vital Signs: Initial Vital Signs Pulse Rate 74 06/18/21 17:03 Respiratory Rate 18 06/18/21 17:03 Blood Pressure 134/73 06/18/21 17:03 O2 Sat by Pulse Oximetry 96 06/18/21 17:03 Pain Scale Pain Intensity 6 - Physical Exam General Appearance: no apparent distress, alert Eye Exam: PERRL/EOMI, eyes nml inspection Ears, Nose, Throat Exam: normal ENT inspection, TMs normal, pharynx normal, moist mucous membranes Neck Exam: normal inspection, non-tender, supple, full range of motion Respiratory Exam: normal breath sounds, lungs clear, airway intact, No respiratory distress Cardiovascular Exam: regular rate/rhythm, normal heart sounds, normal peripheral pulses Gastrointestinal/Abdomen Exam: soft, normal bowel sounds, other (Tenderness palpation to right anterolateral ribs. No pain or tenderness to right upper quadrant of abdomen.), No tenderness, No mass Back Exam: normal inspection, normal range of motion, No CVA tenderness, No vertebral tenderness Extremity Exam: normal inspection, normal range of motion, pelvis stable, other (Some pain and swelling to right CMC joint. Motion limited due to pain. Overlying soft tissue intact. Involved extremity is neurovascular intact distally. Compartments are soft. Cap refill less than 2 seconds. Radial pulse palpable.) Neurologic Exam: alert, oriented x 3, cooperative, normal mood/affect, nml cerebellar function, nml station & gait, sensation nml, No motor deficits Skin Exam: normal color, warm, dry, No rash Lymphatic Exam: No adenopathy SpO2 Interpretation: normal SpO2: 96 O2 Delivery: Room Air - Course Nursing assessment & vital signs reviewed: Yes - Radiology Exams Hand X-ray Interpretation: Interpreted by me (Osteopenia, arthritis, intact hardware. No fractures or dislocations. No soft tissue abnormalities.) Ribs X-ray Interpretation: Interpreted by me (No rib fractures observed. Visible lung clear. Osteopenia. Spine degenerative changes.) Chest X-ray Interpretation: Interpreted by me (No infiltrates or consolidations. Normal-appearing cardiac silhouette. No effusions. Intact bony thorax.) Ordered Tests: Active Orders 24 hr Category Date Time Status CHEST 2 VIEWS (PA AND LAT) Stat Exams 06/18/21 17:41 Taken HAND (2 VIEW) Stat Exams 06/18/21 17:58 Taken RIBS UNILATERAL Stat Exams 06/18/21 18:34 Taken Medication Summary Generic Name Dose Route Start Last Admin Trade Name Freq PRN Reason Stop Dose Admin Acetaminophen 1,000 mg 06/18/21 17:42 Tylenol Extra Strength 500 Mg PO 07/18/21 17:41 Q4H PRN PRN HEADACHE Discontinued Medications Generic Name Dose Route Start Last Admin Trade Name Freq PRN Reason Stop Dose Admin Acetaminophen 1,000 mg 06/18/21 17:56 06/18/21 17:59 Tylenol Extra Strength 500 Mg PO 06/18/21 17:57 1,000 mg STAT ONE Administration - Progress Progress: improved Progress Note: Patient reassessed. Pain well controlled. No fractures or dislocations observed on today's imaging studies. Patient is aware that a formal read will be available in the morning and if there are any discrepancy she will be notified. Patient states she is ready for discharge. No indication for further work-up at this time. Daughter at bedside. Patient agrees to follow-up with primary care doctor within 48 hours for evaluation. Portions of this note were created with voice recognition technology. There may be grammatical, spelling, punctuation or sound alike errors 06/18/21 20:06 Counseled pt/family regarding: diagnosis, need for follow-up, rad results - Departure Departure Disposition: Home Clinical Impression: Fall, Rib contusion, Strain of thumb, right Condition: Stable Critical Care Time: No Referrals: DAVID BINGHAM MD [Primary Care Provider] - Additional Instructions: Discharge/Care Plan JORGE NAVARRO was seen on 06/18/21 in the Emergency Room. The patient was counseled regarding Diagnosis,Lab results, Imaging studies, need for follow up and when to return to the Emergency Room. Prescriptions given: Discharge Note I have spoken with the patient and/or caregivers. I have explained the patient's condition, diagnosis and treatment plan based on the information available to me at this time. I have answered the patient's and/or caregiver's questions and addressed any concerns. The patient and/or caregivers have as good understanding of the patient's diagnosis, condition and treatment plan as can be expected at this point. The vital signs have been stable. The patient's condition is stable and appropriate for discharge from the emergency department. The patient will pursue further outpatient evaluation with the primary care physician or other designated or consulting physician as outlined in the discharge instructions. The patient and/or caregivers are agreeable to this plan of care and follow-up instructions have been explained in detail. The patient and/or caregivers have received these instruction. The patient/and or caregivers are aware that any significant change in condition or worsening of symptoms should prompt an immediate return to this or the closest emergency department or call 911.
[2021-06-18 20:15] VITALS: BP 130/70; PULSE 73; O2SAT 99
--- NOTE | 2021-06-19 08:37 | XRAY ---
Indication: Pain following fall. Comparison: None 2 view right ribs demonstrates osteopenia, mild acromioclavicular degenerative arthropathy, high riding humeral head, a seen with rotator cuff tears, mild/moderate degenerative changes throughout the thoracolumbar spine, mild dextroscoliosis, and scattered right perihilar calcified granulomas. No other bony, articular, or soft tissue abnormalities.
--- NOTE | 2021-06-19 08:39 | XRAY ---
Indication: Thumb pain following fall. Comparison: None 2 view right hand demonstrates osteopenia, minimal degenerative changes all IP joints, mild/moderate degenerative changes 1st metacarpal multangular scaphoid articulation, and incompletely visualized old distal radius fracture with anterior fixation plate/screws. No other bony, articular, or soft tissue abnormalities.
--- NOTE | 2021-06-19 08:39 | XRAY ---
Indication: Right rib pain following fall. Comparison: April 10, 2019. PA/lateral chest hyperinflated again with right perihilar calcified granulomas. No focal infiltrate, consolidation, large effusion, or pneumothorax. Heart and mediastinal structures within normal limits. Bony thorax intact again with mild osteopenia, degenerative changes, and mild dextroscoliosis. Impression: Continued nonacute hyperinflated chest with chronic features.
== END 2021-06-18 20:15 | disposition home or self-care (01) ==
LOC: ED 17:02
DX: S63.601A Unspecified sprain of right thumb, initial encounter (principal); S20.211A Contusion of right front wall of thorax, initial encounter; W01.0XXA Fall on same level from slipping, tripping and stumbling without subsequent striking against object, initial encounter; Y93.E6 Activity, residential relocation
CPT/HCPCS: 71046; 71100; 73120; 99283; A9270-GY

== ENCOUNTER 2022-02-23 18:54 | Observation (INO) | payer MEDICARE ==
[2022-02-23] MEDS ORDERED: Sodium Chloride 0.9% 1000 ML 1,000 ML IV STA (19:32)
[2022-02-23] MEDS ORDERED: Zofran 4 MG/2 ML VIAL IV ONE (19:34)
[2022-02-23] MEDS ORDERED: Sodium Chloride 0.9% 1000 ML 1,000 ML ONE (19:40)
[2022-02-23] MEDS ORDERED: Zofran 4 MG/2 ML VIAL ONE (19:40)
[2022-02-23] MEDS ORDERED: ANTIVERT 25 MG PO ONE (19:41)
[2022-02-23] MEDS ORDERED: ANTIVERT 25 MG ONE (19:42)
--- NOTE | 2022-02-23 19:43 | ERPHSYRPT ---
- History of Present Illness Time Seen by Provider: 02/23/22 19:15 Source: patient, family Exam Limitations: no limitations Patient Subjective Stated Complaint: C/O Dizziness since Thursday. States started vomiting today. Has had some headaches. Denies any fever. Decreased appetite. Denies any pain. Triage Nursing Assessment: Patient ambulated back to ED with a walker and a steady gait. She is alert and oriented and answering questions appropriately. She is slightly hard of hearing and left her hearing aids at home. JOSE EDUARDO OLGUIN. Physician History: 81 years old female with a history of hypertension, hyperlipidemia presented to the ER with chief complaint of dizziness for last 4 days. Patient reports she feels off balance and banging into the morales. She usually walks with a cane but currently getting dizzy and off-balance so much that she is having difficulty ambulation even with walker. Denies any numbness tingling or weakness focally. No visual disturbance. No difficulty speech. Does report having room spinning sensation more with activity and better with lying down. Reports associated nausea and has one episode of vomiting today. No abdominal pain. Denies any chest pain palpitations/pounding of the heart. Timing/Duration: day(s) (4), constant, gradual onset, worse Severity: moderate Character of Deficits: none Deficits: off balance Baseline/Normal Cognition: alert oriented x 3 Current Cognition: alert oriented x 3 Baseline Gait: uses cane Associated Symptoms: nausea, vomiting Allergies/Adverse Reactions: tetracycline Allergy (Verified 02/23/22 19:08) Home Medications: Atorvastatin Calcium [Lipitor] 20 mg PO DAILY 04/10/19 [History] Furosemide 80 mg PO BID 04/10/19 [History] Gabapentin 300 mg PO BID 04/10/19 [History] Levothyroxine Sodium [Levoxyl] 112 mcg PO DAILY 04/10/19 [History] PANTOPRAZOLE 40 mg Tablet [Protonix 40MG Tablet] 40 mg PO QAM 04/10/19 [History] Potassium Chloride [Klor-Con M10] 20 meq PO DAILY 04/10/19 [History] Tramadol HCl 50 mg [Ultram 50 mg] 100 mg PO BID 04/10/19 [History] Meclizine HCl 12.5 mg PO DAILY 06/18/21 [History] Aspirin/Calcium Carbonate [Franco Women's Aspirin Tablet] 1 tab PO DAILY PRN 02/23/22 [History] Bisacodyl [C-Lax Laxative] 2 tab PO DAILY PRN 02/23/22 [History] Cetirizine HCl [Zyrtec] 1 tab PO DAILY PRN 02/23/22 [History] Denosumab 60 mg [Prolia 60 mg Injection] 1 ml SQ CLARIFY 02/23/22 [History] Trazodone HCl 50 mg [Desyrel 50 mg] 1 tab PO DAILY 02/23/22 [History] Hx Tetanus, Diphtheria Vaccination/Date Given: Yes Hx Influenza Vaccination/Date Given: Yes Hx Pneumococcal Vaccination/Date Given: Yes Immunizations Up to Date: Yes Travel Risk - International Travel Have you traveled outside of the country in past 3 weeks: No - Coronavirus Screening Are you exhibiting any of the following symptoms?: No Close contact with a COVID-19 positive Pt in past 14-21 Days: No - Vaccine Status Have you recieved a Covid-19 vaccination: Yes 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 - Vaccination Dates Date of 2cond Vaccination (if applicable): 2020 - Review of Systems Constitutional: Fatigue Eyes: No Symptoms Ears, Nose, & Throat: No Symptoms Respiratory: No Symptoms Cardiac: No Symptoms Abdominal/Gastrointestinal: Nausea, Vomiting, No Abdominal Pain Genitourinary Symptoms: No Symptoms Musculoskeletal: Arthralgias Skin: No Symptoms Neurological: Dizziness, Gait Changes Psychological: No Symptoms Endocrine: No Symptoms Hematologic/Lymphatic: No Symptoms Immunological/Allergic: No Symptoms - Past Medical History Pertinent Past Medical History: Yes Neurological History: No Pertinent History ENT History: No Pertinent History Cardiac History: High Cholesterol, Hypertension Respiratory History: No Pertinent History Endocrine Medical History: Hypothyroidism Musculoskeletal History: Arthritis GI Medical History: GERD History: No Pertinent History Psycho-Social History: No Pertinent History Female Reproductive Disorders: No Pertinent History Other Medical History: Occassional urinary incontinence, anemia - Past Surgical History Past Surgical History: Yes Neuro Surgical History: No Pertinent History Cardiac: No Pertinent History Respiratory: No Pertinent History Gastrointestinal: No Pertinent History Genitourinary: No Pertinent History Musculoskeletal: Orthopedic Surgery Female Surgical History: Hysterectomy, Section Other Surgical History: right hip and right hand 5 YEARS AGO, bone biopsy on 02/12/22 without results at this time - Social History Smoking Status: Former smoker Exposure to second hand smoke: No Drug Use: none Patient Lives Alone: No () - Nursing Vital Signs Nursing Vital Signs: Initial Vital Signs Temperature 98.2 F 02/23/22 19:11 Pulse Rate 75 02/23/22 19:11 Respiratory Rate 19 02/23/22 19:11 Blood Pressure 134/74 02/23/22 19:11 O2 Sat by Pulse Oximetry 99 02/23/22 19:11 Pain Scale Pain Intensity 0 - Joanna Coma Scale Best Eye Response (Joanna): (4) open spontaneously Best Verbal Response (Joanna): (5) oriented Best Motor Response (Joanna): (6) obeys commands [place] Total: 15 - Physical Exam General Appearance: no apparent distress, alert Eye Exam: bilateral eye: normal inspection, EOMI, other (Bilateral pinpoint pupils) Ears, Nose, Throat Exam: normal ENT inspection, TMs normal, pharynx normal, moist mucous membranes Neck Exam: normal inspection, non-tender, supple, full range of motion Respiratory: normal breath sounds, lungs clear Cardiovascular: regular rate/rhythm, normal heart sounds Gastrointestinal: soft, normal bowel sounds, No tenderness Back Exam: normal inspection, normal range of motion Extremity Exam: normal inspection, normal range of motion, pelvis stable Mental Status: alert, oriented x 3, 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 Exam: normal hearing, normal speech, No abnormal gag reflex Coordination/Gait: normal finger to nose, normal cerebellar function Motor/Sensory: no motor deficit, no sensory deficit, no pronator drift, negative Babinski's sign DTR: bicep (R): 2+, bicep (L): 2+, knee (R): 2+, knee (L): 2+ Skin Exam: normal color SpO2 Interpretation: normal SpO2: 99 O2 Delivery: Room Air Ordered Tests: Active Orders 24 hr Category Date Time Status Cardiac Tech STAT Care 02/23/22 19:33 Active EKG-ER Only STAT Care 02/23/22 19:32 Active IV Insertion STAT Care 02/23/22 19:32 Active NPO (ED) STAT Care 02/23/22 19:32 Active Orthostatic Vital Signs STAT Care 02/23/22 19:34 Active Pulse Oximetry (ED) STAT Care 02/23/22 19:32 Active CHEST 1 VIEW (PORTABLE) Stat Exams 02/23/22 19:33 Taken HEAD WITHOUT CONTRAST [CT] Stat Exams 02/23/22 19:33 Taken BLOOD CULTURE Stat Lab 02/23/22 20:20 Received CBC W DIFF Stat Lab 02/23/22 19:50 Completed CMP Stat Lab 02/23/22 19:50 Completed LIPASE Stat Lab 02/23/22 19:50 Completed Lactic Acid Stat Lab 02/23/22 20:35 Completed MAG [MAGNESIUM] Stat Lab 02/23/22 19:50 Completed Manual Differential NC Stat Lab 02/23/22 19:50 Completed TROPONIN Q3H Lab 02/23/22 19:50 Completed TROPONIN Q3H Lab 02/23/22 22:45 Ordered TROPONIN Q3H Lab 02/24/22 01:45 Ordered TROPONIN Q3H Lab 02/24/22 04:45 Ordered TROPONIN Q3H Lab 02/24/22 07:45 Ordered UA W/RFX CULTURE Stat Lab 02/23/22 20:30 Completed Medication Summary Discontinued Medications Generic Name Dose Route Start Last Admin Trade Name Freq PRN Reason Stop Dose Admin Sodium Chloride 1,000 mls @ 999 mls/hr 02/23/22 19:32 02/23/22 20:46 Sodium Chloride 0.9% 1000 Ml IV 02/23/22 20:32 Infused .Q1H1M STA Infusion Sodium Chloride Confirm 02/23/22 19:40 Sodium Chloride 0.9% 1000 Ml Administered 02/23/22 19:41 Dose 1,000 mls @ ud .ROUTE .STK-MED ONE Meclizine HCl 25 mg 02/23/22 19:41 02/23/22 19:43 Meclizine Hcl 25 Mg Tablet PO 02/23/22 19:42 25 mg STAT ONE Administration Meclizine HCl Confirm 02/23/22 19:42 Meclizine Hcl 25 Mg Tablet Administered 02/23/22 19:43 Dose 25 mg .ROUTE .STK-MED ONE Ondansetron HCl 4 mg 02/23/22 19:34 02/23/22 19:41 Ondansetron Hcl 4 Mg/2 Ml Vial IV 02/23/22 19:35 4 mg STAT ONE Administration Ondansetron HCl Confirm 02/23/22 19:40 Ondansetron Hcl 4 Mg/2 Ml Vial Administered 02/23/22 19:41 Dose 4 mg .ROUTE .STK-MED ONE Lab/Rad Data: Laboratory Result Diagrams 02/23/22 19:50 02/23/22 19:50 Laboratory Results 02/23/22 02/23/22 02/23/22 Range/Units 20:35 20:30 19:50 WBC (4.0-10.5) x10^3/uL RBC (4.1-5.4) x10^6/uL Hgb (12.0-16.0) g/dL Hct (35-47) % MCV (78-100) fL MCH (26-32) pg MCHC (32-36) g/dL RDW (11.5-14.0) % Plt Count (150-450) x10^3/uL MPV (7.5-11.0) fL Absolute Nucleated RBC (0.00-0.01) x10^3u/L Sodium (137-145) mmol/L Potassium (3.5-5.1) mmol/L Chloride (98-107) mmol/L Carbon Dioxide (22-30) mmol/L Anion Gap (5-15) MEQ/L BUN (7-17) mg/dL Creatinine (0.52-1.04) mg/dL Estimated GFR ML/MIN Glucose (74-106) mg/dL Lactic Acid 1.4 (0.4-2.0) Calcium (8.4-10.2) mg/dL Magnesium (1.6-2.3) mg/dL Total Bilirubin (0.2-1.3) mg/dL AST (14-36) U/L ALT (0-35) U/L Alkaline Phosphatase (38-126) U/L Troponin I < 0.012 (0.000-0.034) ng/mL Serum Total Protein (6.3-8.2) g/dL Albumin (3.5-5.0) g/dL Lipase (23-300) U/L Urinalys Dipstick Clnc MAIN LAB Urine Color YELLOW (YELLOW) Urine Appearance CLEAR (CLEAR) Urine pH 7.0 (5-6) Ur Specific [place] 1.020 (1.005-1.025) POC Urine Protein Conf NEGATIVE (Negative) Urine Ketones NEGATIVE (NEGATIVE) Urine Nitrite NEGATIVE (NEGATIVE) Urine Bilirubin NEGATIVE (NEGATIVE) Urine Urobilinogen 0.2 (0-1) mg/dL Urine Leukocytes NEGATIVE (NEGATIVE) Urine WBC (Auto) NONE (0-5) /HPF Urine RBC (Auto) NONE (0-2) /HPF U Epithel Cells (Auto) NONE (FEW) /HPF Urine Bacteria (Auto) NONE (NEGATIVE) /HPF Urine RBC NEGATIVE (0-5) [place]/ul Ur Culture Indicated? NO Urine Glucose NEGATIVE (NEGATIVE) mg/dL 02/23/22 02/23/22 Range/Units 19:50 19:50 WBC 22.6 H (4.0-10.5) x10^3/uL RBC 2.37 L (4.1-5.4) x10^6/uL Hgb 9.1 L (12.0-16.0) g/dL Hct 28.5 L (35-47) % MCV 120.3 H (78-100) fL MCH 38.4 H (26-32) pg MCHC 31.9 L (32-36) g/dL RDW 18.2 H (11.5-14.0) % Plt Count 507 H (150-450) x10^3/uL MPV 11.9 H (7.5-11.0) fL Absolute Nucleated RBC 0.00 (0.00-0.01) x10^3u/L Sodium 138 (137-145) mmol/L Potassium 4.7 (3.5-5.1) mmol/L Chloride 105 (98-107) mmol/L Carbon Dioxide 25 (22-30) mmol/L Anion Gap 12.7 (5-15) MEQ/L BUN 20 H (7-17) mg/dL Creatinine 1.41 H (0.52-1.04) mg/dL Estimated GFR 37.9 ML/MIN Glucose 98 (74-106) mg/dL Lactic Acid (0.4-2.0) Calcium 8.2 L (8.4-10.2) mg/dL Magnesium 2.3 (1.6-2.3) mg/dL Total Bilirubin 0.60 (0.2-1.3) mg/dL AST 30 (14-36) U/L ALT 15 (0-35) U/L Alkaline Phosphatase 34 L (38-126) U/L Troponin I (0.000-0.034) ng/mL Serum Total Protein 7.1 (6.3-8.2) g/dL Albumin 4.6 (3.5-5.0) g/dL Lipase 78 (23-300) U/L Urinalys Dipstick Clnc Urine Color (YELLOW) Urine Appearance (CLEAR) Urine pH (5-6) Ur Specific [place] (1.005-1.025) POC Urine Protein Conf (Negative) Urine Ketones (NEGATIVE) Urine Nitrite (NEGATIVE) Urine Bilirubin (NEGATIVE) Urine Urobilinogen (0-1) mg/dL Urine Leukocytes (NEGATIVE) Urine WBC (Auto) (0-5) /HPF Urine RBC (Auto) (0-2) /HPF U Epithel Cells (Auto) (FEW) /HPF Urine Bacteria (Auto) (NEGATIVE) /HPF Urine RBC (0-5) [place]/ul Ur Culture Indicated? Urine Glucose (NEGATIVE) mg/dL - Progress Progress: re-examined Progress Note: 02/23/22 21:39 81 years old is evaluated for dizziness with ambulation and getting off balance despite being with a walker. EKG showed sinus rhythm without any acute ischemic changes and negative initial troponin. She has elevated white count but does have some myeloproliferative disorder. Chest x-ray negative for any acute findings reviewed by me, official report is pending, CT head is negative for any acute findings. She has a negative orthostatics. Given meclizine and fluid bolus, on reevaluation feeling some improvement but still getting dizzy with ambulation in the ER. Patient symptoms could be secondary to posterior fossa stroke. Needs MRI. No MRI services available at present, discussed with Dr. Navarro and patient is being admitted for observation and further work-up. Discussed with : Tomasz Will see patient in: hospital (observation) Counseled pt/family regarding: lab results, diagnosis, need for follow-up, rad results - Departure Departure Disposition: Observation Clinical Impression: Dizziness Condition: Stable Critical Care Time: No Referrals: DAVID BINGHAM MD [Primary Care Provider] - Follow up/PCP as directed
[2022-02-23 19:55] LABS: Hematocrit 28.5 % (35-47); Hemoglobin 9.1 g/dL (12.0-16.0); Mean Cell Volume 120.3 fL (78-100); Mean Corpuscular Hemoglobin 38.4 pg (26-32); Mean Corpuscular Hgb Concent. 31.9 g/dL (32-36); Mean Platelet Volume 11.9 fL (7.5-11.0); Platelet Count 507 x10^3/uL (150-450); Red Blood Count 2.37 x10^6/uL (4.1-5.4); Red Cell Distribution Width 18.2 % (11.5-14.0); White Blood Count 22.6 x10^3/uL (4.0-10.5)
[2022-02-23 20:15] LABS: ALBUMIN 4.6 g/dL (3.5-5.0); ANION GAP 12.7 MEQ/L (5-15); BILIRUBIN,TOTAL 0.6 mg/dL (0.2-1.3); Calcium 8.2 mg/dL (8.4-10.2); Creatinine 1 1.41 mg/dL (0.52-1.04); EST GLOMERULAR FILTRATION RATE 37.9 ML/MIN; MAGNESIUM 2.3 mg/dL (1.6-2.3); Potassium 4.7 mmol/L (3.5-5.1); Total Protein 7.1 g/dL (6.3-8.2)
[2022-02-23 20:49] LABS: Appearance CLEAR (CLEAR); Bilirubin NEGATIVE (NEGATIVE); Dipstick done @ ? MAIN LAB; Glucose NEGATIVE (NEGATIVE); Ketones NEGATIVE (NEGATIVE); Nitrite NEGATIVE (NEGATIVE); Protein,Urine Dip NEGATIVE (Negative); RBC NEGATIVE Ery/ul (0-5); Urobilinogen 0.2 mg/dL (0-1)
[2022-02-23 20:52] LABS: Urine Cultured Indicated? NO
[2022-02-23 22:27] LABS: INFLUENZA A NEGATIVE (NEGATIVE); INFLUENZA B NEGATIVE (NEGATIVE); RESPIRATORY SYNCTIAL VIRUS NEGATIVE (Negative); SARS-CoV-2 Xpert Express NEGATIVE (NEGATIVE)
[2022-02-23 22:30] LABS: Eosinophil 1 % (0.00-3.0); Lymphocytes 70 % (24-44); Monocyte 20 % (0.0-12.0); Platelet Estimate INCREASED (NORMAL); Total Cells Counted 100
[2022-02-23 22:31] LABS: ANISOCYTOSIS 1+
[2022-02-23] MEDS ORDERED: Zofran 4 MG/2 ML VIAL IV PRN (22:43)
[2022-02-23] MEDS ORDERED: DUONEB 0.5-3 MG/3 ml Neb IH PRN (22:43)
[2022-02-23] MEDS: ANTIVERT 25 MG PO SCH (23:43)
[2022-02-23] MEDS ORDERED: ZOCOR 20MG PO ONE (23:45)
[2022-02-23] MEDS ORDERED: NEURONTIN PO ONE (23:45)
[2022-02-23] MEDS ORDERED: DESYREL 50 MG PO ONE (23:45)
[2022-02-24 04:58] LABS: Absolute Neutrophil Ct (ANC) 0.99 x10^3/uL (1.4-6.9); Basophil (Absolute #) 0.09 x10^3/uL (0-0.4); Eosinophil % 0.6 % (0.00-5.0); Hematocrit 24.5 % (35-47); Hemoglobin 7.9 g/dL (12.0-16.0); Lymphocyte (Absolute #) 23.77 x10^3/uL (1.0-4.6); Lymphocytes % 75.5 % (24.0-44.0); Mean Cell Volume 118.9 fL (78-100); Mean Corpuscular Hemoglobin 38.3 pg (26-32); Mean Corpuscular Hgb Concent. 32.2 g/dL (32-36); Mean Platelet Volume 11.4 fL (7.5-11.0); Monocyte (Absolute #) 6.43 x10^3/uL (0.0-1.3); Monocytes % 20.4 % (0.0-12.0); Neutrophil % 3.2 % (36.0-66.0); Platelet Count 439 x10^3/uL (150-450); Red Blood Count 2.06 x10^6/uL (4.1-5.4); Red Cell Distribution Width 18.1 % (11.5-14.0)
[2022-02-24 05:07] LABS: White Blood Count 31.5 x10^3/uL (4.0-10.5)
[2022-02-24 05:40] LABS: ALBUMIN 3.7 g/dL (3.5-5.0); ANION GAP 9.7 MEQ/L (5-15); BILIRUBIN,TOTAL 0.5 mg/dL (0.2-1.3); Calcium 7.4 mg/dL (8.4-10.2); Creatinine 1 1.36 mg/dL (0.52-1.04); EST GLOMERULAR FILTRATION RATE 39.5 ML/MIN; Potassium 3.8 mmol/L (3.5-5.1); Total Protein 5.9 g/dL (6.3-8.2)
--- NOTE | 2022-02-24 08:38 | XRAY ---
Indication: Nausea and dizziness. Multiple contiguous axial images obtained through the head without contrast. Comparison: May 06, 2019. Again age-appropriate global atrophy and mild periventricular degenerative micro-ischemia bilaterally. No acute intracranial hemorrhage, abnormal extra-axial fluid collection, or mass effect. Fourth ventricle is midline without hydrocephalus. Bony calvarium intact. Visualized paranasal sinuses and mastoid air cells are clear. Impression: Continued nonacute senile brain. Comment: Preliminary interpretation made by [facility]. No critical discrepancy.
--- NOTE | 2022-02-24 08:39 | XRAY ---
Indication: Dizziness. Comparison: June 18, 2021. Portable chest less inflated with now minimal bibasilar subsegmental atelectasis. Remaining heart and upper lungs unremarkable again with incidental right perihilar/mediastinal calcified nodes. Bony thorax intact again with osteopenia, degenerative changes, and mild dextroscoliosis. Impression: Nonacute chest with chronic features.
--- NOTE | 2022-02-24 08:47 | PCM.HP ---
History of Present Illness - Chief Complaint Chief Complaint: dizziness History of Present Illness: is a 81 year old female who presented to the ER with a 4 day history of vertigo, worse when she gets up and moves around, describes a spinning sensation or true vertigo. no cough, no sore throat, no ear pain, no fever. improved with meclizine in the ER. - Review of Systems Respiratory: No Cough, No Short Of Breath Cardiac: No Chest Pain, No Edema, No Syncope Abdominal/Gastrointestinal: No Abdominal Pain, No Nausea, No Vomiting, No Diarrhea Neurological: Dizziness, No Focal Weakness, No Sensory Changes Medications & Allergies Home Medications: Home Medication List Atorvastatin Calcium [Lipitor] 20 mg PO QHS 04/10/19 [History Confirmed 02/24/22] Furosemide 40 mg PO BID 04/10/19 [History Confirmed 02/24/22] Gabapentin 300 mg PO BID 04/10/19 [History Confirmed 02/23/22] Levothyroxine Sodium [Levoxyl] 112 mcg PO DAILY 04/10/19 [History Confirmed 02/23/22] PANTOPRAZOLE 40 mg Tablet [Protonix 40MG Tablet] 40 mg PO QAM 04/10/19 [History Confirmed 02/23/22] Potassium Chloride [Klor-Con M10] 20 meq PO DAILY 04/10/19 [History Confirmed 02/23/22] Tramadol HCl 50 mg [Ultram 50 mg] 100 mg PO BID 04/10/19 [History Confirmed 02/23/22] Meclizine HCl 12.5 mg PO DAILY 06/18/21 [History Confirmed 02/23/22] Bisacodyl [C-Lax Laxative] 2 tab PO DAILY PRN 02/23/22 [History Confirmed 02/23/22] Cetirizine HCl [Zyrtec] 1 tab PO DAILY PRN 02/23/22 [History Confirmed 02/23/22] Denosumab 60 mg [Prolia 60 mg Injection] 1 ml SQ CLARIFY 02/23/22 [History Confirmed 02/23/22] Trazodone HCl 50 mg [Desyrel 50 mg] 1 tab PO QHS 02/23/22 [History Confirmed 02/24/22] Allergies/Adverse Reactions: Allergies Allergy/AdvReac Type Severity Reaction Status Date / Time tetracycline Allergy Verified 02/23/22 19:08 - Past Medical History Past Medical History: Yes Neurological History: No Pertinent History ENT History: Cataracts Cardiac History: High Cholesterol, Hypertension Respiratory History: No Pertinent History Endocrine Medical History: Hypothyroidism Musculoskelatal History: Arthritis, Fibromyalgia GI Medical History: GERD History: No Pertinent History Pyscho-Social History: No Pertinent History Reproductive Disorders: No Pertinent History Comment: Occassional urinary incontinence, anemia - Female History Are you now?: No - Past Surgical History Past Surgical History: Yes Neuro Surgical History: No Pertinent History Cardiac History: No Pertinent History Respiratory Surgery: No Pertinent History GI Surgical History: Appendectomy Genitourinary Surgical Hx: No Pertinent History Musculskeletal Surgical Hx: Orthopedic Surgery Female Surgical History: Hysterectomy, Section Other Surgical History: right hip and right hand 5 YEARS AGO, bone biopsy on 02/12/22 without results at this time - Social History Smoking Status: Former smoker Exposure to second hand smoke: No Alcohol: Rarely Drug Use: none - Physical Exam Vital Signs: Vital Signs - 24 hr Temp Pulse Resp BP Pulse Ox 02/24/22 07:29 98.0 F 84 17 94/52 89 L 02/24/22 04:10 98.0 F 77 18 90/52 96 02/24/22 04:00 18 02/24/22 00:00 18 02/23/22 23:03 98.8 F 80 18 105/51 98 02/23/22 22:00 80 16 99/65 98 02/23/22 21:42 99 02/23/22 21:00 76 19 105/57 95 02/23/22 20:14 76 19 109/55 98 02/23/22 19:39 98 02/23/22 19:11 98.2 F 75 19 134/74 99 General Appearance: no apparent distress Neurologic Exam: alert, oriented x 3 Ears, Nose, Throat Exam: TMs normal, moist mucous membranes Neck Exam: normal inspection, non-tender, supple Respiratory Exam: normal breath sounds, lungs clear, No respiratory distress Cardiovascular Exam: regular rate/rhythm, normal heart sounds, normal peripheral pulses Gastrointestinal/Abdomen Exam: soft, normal bowel sounds, No tenderness, No mass Extremity Exam: normal inspection, normal range of motion, pelvis stable Skin Exam: normal color, warm, dry, No rash Results - Labs Lab/Micro Results: Lab Results-Last 24 Hours 02/23/22 02/23/22 02/23/22 Range/Units 19:50 19:50 19:50 WBC 22.6 H (4.0-10.5) x10^3/uL RBC 2.37 L (4.1-5.4) x10^6/uL Hgb 9.1 L (12.0-16.0) g/dL Hct 28.5 L (35-47) % MCV 120.3 H (78-100) fL MCH 38.4 H (26-32) pg MCHC 31.9 L (32-36) g/dL RDW 18.2 H (11.5-14.0) % Plt Count 507 H (150-450) x10^3/uL MPV 11.9 H (7.5-11.0) fL Gran % (36.0-66.0) % Immature Gran % (Auto) (0.00-0.4) % Nucleat RBC Rel Count (0.00-0.1) % Eos # (Auto) (0-0.5) x10^3/uL Immature Gran # (Auto) (0.00-0.03) x10^3u/L Absolute Lymphs (auto) (1.0-4.6) x10^3/uL Absolute Monos (auto) (0.0-1.3) x10^3/uL Absolute Nucleated RBC 0.00 (0.00-0.01) x10^3u/L Lymphocytes % (24.0-44.0) % Monocytes % (0.0-12.0) % Eosinophils % (0.00-5.0) % Basophils % (0.0-0.4) % Absolute Granulocytes (1.4-6.9) x10^3/uL Segmented Neutrophils 9 L (36.0-66.0) % Lymphocytes (Manual) 70 H (24-44) % Monocytes (Manual) 20 H (0.0-12.0) % Eosinophils (Manual) 1 (0.00-3.0) % Basophils # (0-0.4) x10^3/uL Platelet Estimate INCREASED (NORMAL) RBC Morphology ABNORMAL Anisocytosis 1+ Smear Path Review Sodium 138 (137-145) mmol/L Potassium 4.7 (3.5-5.1) mmol/L Chloride 105 (98-107) mmol/L Carbon Dioxide 25 (22-30) mmol/L Anion Gap 12.7 (5-15) MEQ/L BUN 20 H (7-17) mg/dL Creatinine 1.41 H (0.52-1.04) mg/dL Estimated GFR 37.9 ML/MIN Glucose 98 (74-106) mg/dL Lactic Acid (0.4-2.0) Calcium 8.2 L (8.4-10.2) mg/dL Magnesium 2.3 (1.6-2.3) mg/dL Total Bilirubin 0.60 (0.2-1.3) mg/dL AST 30 (14-36) U/L ALT 15 (0-35) U/L Alkaline Phosphatase 34 L (38-126) U/L Troponin I < 0.012 (0.000-0.034) ng/mL Serum Total Protein 7.1 (6.3-8.2) g/dL Albumin 4.6 (3.5-5.0) g/dL Lipase 78 (23-300) U/L TSH 3rd Generation (0.47-4.68) mIU/L Urinalys Dipstick Clnc Urine Color (YELLOW) Urine Appearance (CLEAR) Urine pH (5-6) Ur Specific Wellman (1.005-1.025) POC Urine Protein Conf (Negative) Urine Ketones (NEGATIVE) Urine Nitrite (NEGATIVE) Urine Bilirubin (NEGATIVE) Urine Urobilinogen (0-1) mg/dL Urine Leukocytes (NEGATIVE) Urine WBC (Auto) (0-5) /HPF Urine RBC (Auto) (0-2) /HPF U Epithel Cells (Auto) (FEW) /HPF Urine Bacteria (Auto) (NEGATIVE) /HPF Urine RBC (0-5) León/ul Ur Culture Indicated? Urine Glucose (NEGATIVE) mg/dL Influenza Type A Ag (NEGATIVE) Influenza Type B Ag (NEGATIVE) RSV (PCR) (Negative) SARS-CoV-2 (PCR) (NEGATIVE) 02/23/22 02/23/22 02/23/22 Range/Units 20:30 20:35 21:48 WBC (4.0-10.5) x10^3/uL RBC (4.1-5.4) x10^6/uL Hgb (12.0-16.0) g/dL Hct (35-47) % MCV (78-100) fL MCH (26-32) pg MCHC (32-36) g/dL RDW (11.5-14.0) % Plt Count (150-450) x10^3/uL MPV (7.5-11.0) fL Gran % (36.0-66.0) % Immature Gran % (Auto) (0.00-0.4) % Nucleat RBC Rel Count (0.00-0.1) % Eos # (Auto) (0-0.5) x10^3/uL Immature Gran # (Auto) (0.00-0.03) x10^3u/L Absolute Lymphs (auto) (1.0-4.6) x10^3/uL Absolute Monos (auto) (0.0-1.3) x10^3/uL Absolute Nucleated RBC (0.00-0.01) x10^3u/L Lymphocytes % (24.0-44.0) % Monocytes % (0.0-12.0) % Eosinophils % (0.00-5.0) % Basophils % (0.0-0.4) % Absolute Granulocytes (1.4-6.9) x10^3/uL Segmented Neutrophils (36.0-66.0) % Lymphocytes (Manual) (24-44) % Monocytes (Manual) (0.0-12.0) % Eosinophils (Manual) (0.00-3.0) % Basophils # (0-0.4) x10^3/uL Platelet Estimate (NORMAL) RBC Morphology Anisocytosis Smear Path Review Sodium (137-145) mmol/L Potassium (3.5-5.1) mmol/L Chloride (98-107) mmol/L Carbon Dioxide (22-30) mmol/L Anion Gap (5-15) MEQ/L BUN (7-17) mg/dL Creatinine (0.52-1.04) mg/dL Estimated GFR ML/MIN Glucose (74-106) mg/dL Lactic Acid 1.4 (0.4-2.0) Calcium (8.4-10.2) mg/dL Magnesium (1.6-2.3) mg/dL Total Bilirubin (0.2-1.3) mg/dL AST (14-36) U/L ALT (0-35) U/L Alkaline Phosphatase (38-126) U/L Troponin I (0.000-0.034) ng/mL Serum Total Protein (6.3-8.2) g/dL Albumin (3.5-5.0) g/dL Lipase (23-300) U/L TSH 3rd Generation (0.47-4.68) mIU/L Urinalys Dipstick Clnc MAIN LAB Urine Color YELLOW (YELLOW) Urine Appearance CLEAR (CLEAR) Urine pH 7.0 (5-6) Ur Specific Wellman 1.020 (1.005-1.025) POC Urine Protein Conf NEGATIVE (Negative) Urine Ketones NEGATIVE (NEGATIVE) Urine Nitrite NEGATIVE (NEGATIVE) Urine Bilirubin NEGATIVE (NEGATIVE) Urine Urobilinogen 0.2 (0-1) mg/dL Urine Leukocytes NEGATIVE (NEGATIVE) Urine WBC (Auto) NONE (0-5) /HPF Urine RBC (Auto) NONE (0-2) /HPF U Epithel Cells (Auto) NONE (FEW) /HPF Urine Bacteria (Auto) NONE (NEGATIVE) /HPF Urine RBC NEGATIVE (0-5) León/ul Ur Culture Indicated? NO Urine Glucose NEGATIVE (NEGATIVE) mg/dL Influenza Type A Ag NEGATIVE (NEGATIVE) Influenza Type B Ag NEGATIVE (NEGATIVE) RSV (PCR) NEGATIVE (Negative) SARS-CoV-2 (PCR) NEGATIVE (NEGATIVE) 02/23/22 02/24/22 02/24/22 Range/Units 22:51 01:47 04:35 WBC 31.5 H* (4.0-10.5) x10^3/uL RBC 2.06 L (4.1-5.4) x10^6/uL Hgb 7.9 L (12.0-16.0) g/dL Hct 24.5 L (35-47) % MCV 118.9 H (78-100) fL MCH 38.3 H (26-32) pg MCHC 32.2 (32-36) g/dL RDW 18.1 H (11.5-14.0) % Plt Count 439 (150-450) x10^3/uL MPV 11.4 H (7.5-11.0) fL Gran % 3.2 L (36.0-66.0) % Immature Gran % (Auto) 0.0 (0.00-0.4) % Nucleat RBC Rel Count 0.0 (0.00-0.1) % Eos # (Auto) 0.20 (0-0.5) x10^3/uL Immature Gran # (Auto) 0.01 (0.00-0.03) x10^3u/L Absolute Lymphs (auto) 23.77 H (1.0-4.6) x10^3/uL Absolute Monos (auto) 6.43 H (0.0-1.3) x10^3/uL Absolute Nucleated RBC 0.00 (0.00-0.01) x10^3u/L Lymphocytes % 75.5 H (24.0-44.0) % Monocytes % 20.4 H (0.0-12.0) % Eosinophils % 0.6 (0.00-5.0) % Basophils % 0.3 (0.0-0.4) % Absolute Granulocytes 0.99 L (1.4-6.9) x10^3/uL Segmented Neutrophils (36.0-66.0) % Lymphocytes (Manual) (24-44) % Monocytes (Manual) (0.0-12.0) % Eosinophils (Manual) (0.00-3.0) % Basophils # 0.09 (0-0.4) x10^3/uL Platelet Estimate (NORMAL) RBC Morphology Anisocytosis Smear Path Review Pending Sodium (137-145) mmol/L Potassium (3.5-5.1) mmol/L Chloride (98-107) mmol/L Carbon Dioxide (22-30) mmol/L Anion Gap (5-15) MEQ/L BUN (7-17) mg/dL Creatinine (0.52-1.04) mg/dL Estimated GFR ML/MIN Glucose (74-106) mg/dL Lactic Acid (0.4-2.0) Calcium (8.4-10.2) mg/dL Magnesium (1.6-2.3) mg/dL Total Bilirubin (0.2-1.3) mg/dL AST (14-36) U/L ALT (0-35) U/L Alkaline Phosphatase (38-126) U/L Troponin I < 0.012 < 0.012 (0.000-0.034) ng/mL Serum Total Protein (6.3-8.2) g/dL Albumin (3.5-5.0) g/dL Lipase (23-300) U/L TSH 3rd Generation (0.47-4.68) mIU/L Urinalys Dipstick Clnc Urine Color (YELLOW) Urine Appearance (CLEAR) Urine pH (5-6) Ur Specific Wellman (1.005-1.025) POC Urine Protein Conf (Negative) Urine Ketones (NEGATIVE) Urine Nitrite (NEGATIVE) Urine Bilirubin (NEGATIVE) Urine Urobilinogen (0-1) mg/dL Urine Leukocytes (NEGATIVE) Urine WBC (Auto) (0-5) /HPF Urine RBC (Auto) (0-2) /HPF U Epithel Cells (Auto) (FEW) /HPF Urine Bacteria (Auto) (NEGATIVE) /HPF Urine RBC (0-5) Le[place]/ul Ur Culture Indicated? Urine Glucose (NEGATIVE) mg/dL Influenza Type A Ag (NEGATIVE) Influenza Type B Ag (NEGATIVE) RSV (PCR) (Negative) SARS-CoV-2 (PCR) (NEGATIVE) 02/24/22 02/24/22 02/24/22 Range/Units 04:35 04:35 04:45 WBC (4.0-10.5) x10^3/uL RBC (4.1-5.4) x10^6/uL Hgb (12.0-16.0) g/dL Hct (35-47) % MCV (78-100) fL MCH (26-32) pg MCHC (32-36) g/dL RDW (11.5-14.0) % Plt Count (150-450) x10^3/uL MPV (7.5-11.0) fL Gran % (36.0-66.0) % Immature Gran % (Auto) (0.00-0.4) % Nucleat RBC Rel Count (0.00-0.1) % Eos # (Auto) (0-0.5) x10^3/uL Immature Gran # (Auto) (0.00-0.03) x10^3u/L Absolute Lymphs (auto) (1.0-4.6) x10^3/uL Absolute Monos (auto) (0.0-1.3) x10^3/uL Absolute Nucleated RBC (0.00-0.01) x10^3u/L Lymphocytes % (24.0-44.0) % Monocytes % (0.0-12.0) % Eosinophils % (0.00-5.0) % Basophils % (0.0-0.4) % Absolute Granulocytes (1.4-6.9) x10^3/uL Segmented Neutrophils (36.0-66.0) % Lymphocytes (Manual) (24-44) % Monocytes (Manual) (0.0-12.0) % Eosinophils (Manual) (0.00-3.0) % Basophils # (0-0.4) x10^3/uL Platelet Estimate (NORMAL) RBC Morphology Anisocytosis Smear Path Review Sodium 138 (137-145) mmol/L Potassium 3.8 (3.5-5.1) mmol/L Chloride 105 (98-107) mmol/L Carbon Dioxide 27 (22-30) mmol/L Anion Gap 9.7 (5-15) MEQ/L BUN 17 (7-17) mg/dL Creatinine 1.36 H (0.52-1.04) mg/dL Estimated GFR 39.5 ML/MIN Glucose 89 (74-106) mg/dL Lactic Acid (0.4-2.0) Calcium 7.4 L (8.4-10.2) mg/dL Magnesium (1.6-2.3) mg/dL Total Bilirubin 0.50 (0.2-1.3) mg/dL AST 58 H (14-36) U/L ALT 13 (0-35) U/L Alkaline Phosphatase 34 L (38-126) U/L Troponin I < 0.012 (0.000-0.034) ng/mL Serum Total Protein 5.9 L (6.3-8.2) g/dL Albumin 3.7 (3.5-5.0) g/dL Lipase (23-300) U/L TSH 3rd Generation 0.286 L (0.47-4.68) mIU/L Urinalys Dipstick Clnc Urine Color (YELLOW) Urine Appearance (CLEAR) Urine pH (5-6) Ur Specific Wellman (1.005-1.025) POC Urine Protein Conf (Negative) Urine Ketones (NEGATIVE) Urine Nitrite (NEGATIVE) Urine Bilirubin (NEGATIVE) Urine Urobilinogen (0-1) mg/dL Urine Leukocytes (NEGATIVE) Urine WBC (Auto) (0-5) /HPF Urine RBC (Auto) (0-2) /HPF U Epithel Cells (Auto) (FEW) /HPF Urine Bacteria (Auto) (NEGATIVE) /HPF Urine RBC (0-5) León/ul Ur Culture Indicated? Urine Glucose (NEGATIVE) mg/dL Influenza Type A Ag (NEGATIVE) Influenza Type B Ag (NEGATIVE) RSV (PCR) (Negative) SARS-CoV-2 (PCR) (NEGATIVE) - Radiology Impressions Radiology Exams & Impressions: Radiology Procedures Category Date Time Status CHEST 1 VIEW (PORTABLE) Stat Exams 02/23/22 19:33 Completed HEAD WITHOUT CONTRAST [CT] Stat Exams 02/23/22 19:33 Completed MRI BRAIN W/O CONTRAST [MRI] Routine Exams 02/24/22 08:42 Ordered Assessment/Plan (1) Vertigo Current Visit: Yes Status: Acute Assessment & Plan: hold lasix due to mild relative hypotension, schedule meclizine, MRI pending to r/o brainstem pathology but suspect BPPV. exam is nonfocal, might need neuro/ENT consult following hospital stay Code(s): R42 - DIZZINESS AND GIDDINESS (2) Anemia Current Visit: No Status: Acute Code(s): D64.9 - ANEMIA, UNSPECIFIED (3) Chronic renal insufficiency, stage III (moderate) Current Visit: No Status: Chronic Code(s): N18.3 - CHRONIC KIDNEY DISEASE, STAGE 3 (MODERATE) * DO NOT USE * (4) Systolic CHF, chronic Current Visit: No Status: Chronic Code(s): I50.22 - CHRONIC SYSTOLIC (CONGESTIVE) HEART FAILURE
[2022-02-24] MEDS ORDERED: NON-FORMULARY ITEM (Cetirizine Hcl [Zyrtec] 10 MG Tablet) PO PRN (09:08)
[2022-02-24] MEDS ORDERED: DULCOLAX 5 MG PO PRN (09:08)
[2022-02-24] MEDS ORDERED: CLARITIN 10 MG PO PRN (09:11)
[2022-02-24] MEDS: ANTIVERT 25 MG PO SCH ×3 (09:21→22:09)
[2022-02-24] MEDS: Protonix 40MG Tablet PO SCH (09:21)
[2022-02-24] MEDS: SYNTHROID 112 MCG PO SCH (09:21)
[2022-02-24] MEDS: ULTRAM 50 MG PO SCH ×2 (09:21→22:08)
[2022-02-24] MEDS: NEURONTIN PO SCH ×2 (09:21→22:09)
[2022-02-24] MEDS ORDERED: PROTONIX 40 MG IV IV SCH (10:00)
--- NOTE | 2022-02-24 16:22 | XRAY ---
Indication: Vomiting and vertigo. Brainstem stroke. Sagittal, coronal, and axial MRI brain performed without contrast using T1, T2, FLAIR, diffusion, and ADC sequences. Comparison: None Age-appropriate global atrophy and mild periventricular degenerative micro-ischemia signal bilaterally. No acute intracranial hemorrhage, abnormal extra-axial fluid collection, or mass effect. Diffusion images are negative for restricted signal. Fourth ventricle is midline without hydrocephalus. 7/8 cranial nerve complex bilaterally symmetric. Normal flow void signal within the major intracerebral circulation. Normal appearing craniocervical junction and sella turcica. Paranasal sinuses are clear. Inferior right mastoid air cells demonstrates fluid signal presumed inflammatory. Impression: 1. Atrophy and degenerative micro-ischemia within normal limits for patient's age. 2. No acute intracranial abnormalities or evidence for evolving stroke. 3. Incidental fluid signal right mastoid air cells presumed inflammatory.
[2022-02-24] MEDS: DESYREL 50 MG PO SCH (22:09)
[2022-02-25 04:45] LABS: Hematocrit 24.6 % (35-47); Hemoglobin 7.7 g/dL (12.0-16.0); Mean Corpuscular Hemoglobin 37.6 pg (26-32); Mean Corpuscular Hgb Concent. 31.3 g/dL (32-36); Mean Platelet Volume 11.4 fL (7.5-11.0); Platelet Count 406 x10^3/uL (150-450); Red Blood Count 2.05 x10^6/uL (4.1-5.4)
[2022-02-25 04:52] LABS: White Blood Count 35.8 x10^3/uL (4.0-10.5)
[2022-02-25 05:08] LABS: ANION GAP 11.5 MEQ/L (5-15); Calcium 7.8 mg/dL (8.4-10.2); Creatinine 1 1.31 mg/dL (0.52-1.04); EST GLOMERULAR FILTRATION RATE 41.2 ML/MIN; Potassium 4.2 mmol/L (3.5-5.1)
[2022-02-25 07:08] LABS: ANISOCYTOSIS 1+; Lymphocytes 99 % (24-44); Platelet Estimate NORMAL (NORMAL); Total Cells Counted 100
[2022-02-25] MEDS: TYLENOL 325 MG PO PRN (09:34)
[2022-02-25] MEDS: ANTIVERT 25 MG PO SCH ×3 (09:36→20:57)
[2022-02-25] MEDS: SYNTHROID 112 MCG PO SCH (09:36)
[2022-02-25] MEDS: NEURONTIN PO SCH ×2 (09:39→20:57)
[2022-02-25] MEDS: Protonix 40MG Tablet PO SCH (09:40)
[2022-02-25] MEDS: ULTRAM 50 MG PO SCH ×2 (09:49→20:57)
--- NOTE | 2022-02-25 15:11 | PCM.NOTE ---
Date and Time: 02/25/22 1507 Subjective Assessment: pt seen this morning, was feeling better but still having dizziness. I just spoke to RN this afternoon and while pt looks fairly steady, she is still complaining of dizziness. - Review of Systems Constitutional: No Fever Abdominal/Gastrointestinal: No Vomiting Objective Exam General Appearance: no apparent distress, alert Neurologic Exam: oriented x 3, cooperative Skin Exam: normal color, warm, dry, No rash Eye Exam: eyes nml inspection Ears, Nose, Throat Exam: moist mucous membranes Neck Exam: normal inspection Respiratory Exam: normal breath sounds, lungs clear, No crackles/rales, No rhonchi, No wheezing Cardiovascular Exam: regular rate/rhythm, normal heart sounds, No murmur Extremity Exam: normal inspection, No pedal edema, No swelling Back Exam: normal inspection, No rash OBJECTIVE DATA Vital Signs: Vital Signs - 24 hr Temp Pulse Resp BP Pulse Ox 02/25/22 12:00 16 02/25/22 11:52 98.9 F 44 L 24 112/58 94 L 02/25/22 07:48 98.5 F 79 19 90/44 91 L 02/25/22 05:58 16 02/25/22 04:00 98.9 F 61 16 105/51 92 L 02/24/22 23:23 98.9 F 78 16 106/53 91 L 02/24/22 19:29 98.4 F 85 16 107/54 92 L 02/24/22 16:00 99.6 F 76 14 106/52 93 L Pain Assessment - Last Documented Pain Intensity 0 Pain Scale Used 0-10 Pain Scale Intake and Output: Intake & Output 02/23/22 02/24/22 02/25/22 02/26/22 11:59 11:59 11:59 11:59 Intake Total 580 1640 240 Output Total 600 1100 400 Balance -20 540 -160 Weight 73.6 kg 75.2 kg Lab Results: Lab Results-Last 24 Hours 02/25/22 02/25/22 Range/Units 04:44 04:44 WBC 35.8 H* (4.0-10.5) x10^3/uL RBC 2.05 L (4.1-5.4) x10^6/uL Hgb 7.7 L (12.0-16.0) g/dL Hct 24.6 L (35-47) % MCV 120.0 H (78-100) fL MCH 37.6 H (26-32) pg MCHC 31.3 L (32-36) g/dL RDW 18.0 H (11.5-14.0) % Plt Count 406 (150-450) x10^3/uL MPV 11.4 H (7.5-11.0) fL Segmented Neutrophils 1 L (36.0-66.0) % Lymphocytes (Manual) 99 H (24-44) % Platelet Estimate NORMAL (NORMAL) RBC Morphology ABNORMAL Anisocytosis 1+ Sodium 136 L (137-145) mmol/L Potassium 4.2 (3.5-5.1) mmol/L Chloride 106 (98-107) mmol/L Carbon Dioxide 23 (22-30) mmol/L Anion Gap 11.5 (5-15) MEQ/L BUN 25 H (7-17) mg/dL Creatinine 1.31 H (0.52-1.04) mg/dL Estimated GFR 41.2 ML/MIN Glucose 88 (74-106) mg/dL Calcium 7.8 L (8.4-10.2) mg/dL Radiology Exams: Radiology Procedures Category Date Time Status CHEST 1 VIEW (PORTABLE) Stat Exams 02/23/22 19:33 Completed HEAD WITHOUT CONTRAST [CT] Stat Exams 02/23/22 19:33 Completed MRI BRAIN W/O CONTRAST [MRI] Routine Exams 02/24/22 08:42 Completed Multi-Disciplinary Progress Notes: Multi-Disciplinary Progress Notes 02/25/22 13:38 Case Management Note by Jacqueline Katz Addendum entered by Jacqueline Katz 02/25/22 13:41: THEY WILL NEED NOTIFIED AT TIME OF DC AT [phone]. THEY WILL NEED FAXED THE DC INSTRUCTIONS, DC MED LIST AND DC SUMMARY (IF AVAILABLE) TO [phone] Original Note: REFERRAL FAXED TO [facility] Initialized on 02/25/22 13:38 - END OF NOTE 02/25/22 13:12 Case Management Note by Jacqueline Katz Addendum entered by Jacqueline Katz 02/25/22 13:20: PATIENT ALREADY HAS A WALKER AT HOME WELL Original Note: S/W PATIENT- SHE REPORTS SHE PLANS TO RETURN HOME AT TIME OF DC. SHE FEELS LIKE SHE WILL BE ABLE TO CARE FOR HERSELF AT HOME. SHE HAS BEEN GETTING PHYSICAL THERAPY THRU [facility] OUTPT. [place] S/W PATIENT- SHE WOULD LIKE TO CHANGE TO [facility] AT TIME OF DC. SHE HAS NO PREFERENCE IN COMPANY. SHE REPORTS SHE HAS BEEN DRIVING HER AND HER TO THERAPY BUT D/T THE DIZZINESS THIS WOULD BE UNSAFE AT THIS TIME Initialized on 02/25/22 13:12 - END OF NOTE Assessment/Plan (1) BPPV (benign paroxysmal positional vertigo) Current Visit: Yes Status: Acute Qualifiers: Laterality: unspecified laterality Qualified Code(s): H81.10 - Benign paroxysmal vertigo, unspecified ear Assessment & Plan: likely, with normal MRI. PT consulted. May need ENT f/u outpatient, or neuro f/u inpatient if sx become incompatbile with this dx. Code(s): H81.10 - BENIGN PAROXYSMAL VERTIGO, UNSPECIFIED EAR
[2022-02-25] MEDS: DESYREL 50 MG PO SCH (20:57)
[2022-02-26] MEDS: TYLENOL 325 MG PO PRN ×2 (01:12→09:48)
--- NOTE | 2022-02-26 09:29 | PCM.DS ---
Discharge Summary Date of Admission: 02/23/22 22:42 Admitting Physician: DELILAH BRIDGES DO Primary Care Provider: DAVID BINGHAM ANGELIKA Allergies Allergies tetracycline Allergy (Verified 02/23/22 19:08) Hospital Summary - Hospital Course Hospital Course: patient admitted with dizziness and unsteady gait, has true vertigo. negative MRI, hx myeloproliferative disorder, recently had bone marrow biopsy with hem/onc and results are pending. treated with meclizine, going to rehab for therapy. - Vitals & Intake/Output Vital Signs: Vital Signs Temperature 97.8 F 02/26/22 07:40 Pulse Rate 51 L 02/26/22 07:40 Respiratory Rate 20 02/26/22 07:40 Blood Pressure 90/51 02/26/22 07:40 O2 Sat by Pulse Oximetry 93 L 02/26/22 07:40 Intake & Output: Intake & Output 02/23/22 02/24/22 02/25/22 02/26/22 11:59 11:59 11:59 11:59 Intake Total 580 1640 940 Output Total 600 1100 1000 Balance -20 540 -60 Weight 73.6 kg 75.2 kg 75.4 kg - Lab Result Diagrams: 02/25/22 04:44 02/25/22 04:44 Lab Results-Last 24 Hrs: Lab Results-Last 24 Hours 02/24/22 Range/Units 04:35 Smear Path Review Micro Results-Entire Visit: Microbiology 02/23/22 20:20 Blood Culture - Preliminary Blood NO GROWTH TO DATE 02/23/22 19:50 Blood Culture - Preliminary Blood NO GROWTH TO DATE - Radiology Exams Ordered Rad Exams-Entire Visit: Radiology Procedures Category Date Time Status MRI BRAIN W/O CONTRAST [MRI] Routine Exams 02/24/22 08:42 Completed - Procedures and Test Procedures and Tests throughout Hospitalization: Therapy Orders & Screens 02/25/22 09:18 PT Eval & Treat ( Order) ONCE Reason for Eval:: likely BPPV, pt cares for at home Diagnosis: dizziness Discharge Exam General Appearance: no apparent distress Neurologic Exam: alert, oriented x 3 Respiratory Exam: normal breath sounds, lungs clear, No respiratory distress Cardiovascular Exam: regular rate/rhythm, normal heart sounds Gastrointestinal/Abdomen Exam: soft, No tenderness, No mass Extremity Exam: normal inspection, normal range of motion Skin Exam: normal color, warm, dry Final Diagnosis/Problem List - Final Discharge Diagnosis/Problem (1) Vertigo Current Visit: Yes Status: Acute Assessment & Plan: continue meclizine, c/w BPPV Code(s): R42 - DIZZINESS AND GIDDINESS (2) Anemia Current Visit: No Status: Acute Assessment & Plan: bone marrow results pending, will f/u with hem/onc Code(s): D64.9 - ANEMIA, UNSPECIFIED (3) Chronic renal insufficiency, stage III (moderate) Current Visit: No Status: Chronic Code(s): N18.3 - CHRONIC KIDNEY DISEASE, STAGE 3 (MODERATE) * DO NOT USE * (4) Systolic CHF, chronic Current Visit: No Status: Chronic Assessment & Plan: patient mildly hypotensive, hold lasix but will likely need resumed at a lower dose following transfer to [facility] if she begins to experience volume overload Code(s): I50.22 - CHRONIC SYSTOLIC (CONGESTIVE) HEART FAILURE - Discharge Disposition: DC TO [place] Condition: Stable Prescriptions: New Meclizine HCl 25 mg [Antivert 25 mg] 12.5 mg PO TID #90 tablet Continue PANTOPRAZOLE 40 mg Tablet [Protonix 40MG Tablet] 40 mg PO QAM Tramadol HCl 50 mg [Ultram 50 mg] 100 mg PO BID Levothyroxine Sodium [Levoxyl] 112 mcg PO DAILY Gabapentin 300 mg PO BID Atorvastatin Calcium [Lipitor] 20 mg PO QHS Bisacodyl [C-Lax Laxative] 2 tab PO DAILY PRN PRN Reason: Constipation Denosumab 60 mg [Prolia 60 mg Injection] 1 ml SQ CLARIFY Trazodone HCl 50 mg [Desyrel 50 mg] 1 tab PO QHS Cetirizine HCl [Zyrtec] 1 tab PO DAILY PRN PRN Reason: Allergies Discontinued Potassium Chloride [Klor-Con M10] 20 meq PO DAILY Furosemide 40 mg PO BID Meclizine HCl 12.5 mg PO DAILY Additional Instructions: REFERRAL WAS FAXED TO [facility], THEY WILL CONTACT YOU TO ARRANGE A VISIT. THEIR PHONE NUMBER IS [phone]. Follow up with: DAVID BINGHAM MD [Primary Care Provider] -
[2022-02-26] MEDS: Protonix 40MG Tablet PO SCH (09:48)
[2022-02-26] MEDS: NEURONTIN PO SCH (09:49)
[2022-02-26] MEDS: ANTIVERT 25 MG PO SCH (09:49)
[2022-02-26] MEDS: SYNTHROID 112 MCG PO SCH (09:50)
[2022-02-26] MEDS: ULTRAM 50 MG PO SCH (09:51)
[2022-02-26 11:48] VITALS: BP 103/53; PULSE 71; O2SAT 97
== END 2022-02-26 13:25 ==
LOC: ED 18:54 → MED SURG 22:42
PROVIDERS: ADMIT Family Medicine; ATTEND Family Medicine
DX: R42 Dizziness and giddiness (principal); D64.9 Anemia, unspecified; I11.0 Hypertensive heart disease with heart failure; I50.22 Chronic systolic (congestive) heart failure; E78.5 Hyperlipidemia, unspecified; Z79.899 Other long term (current) drug therapy; Z20.828 Contact with and (suspected) exposure to other viral communicable diseases
CPT/HCPCS: 0241U; 36000; 36415; 70450; 70551; 71045; 80048; 80053; 81015; 83605; 83690; 83735; 84443; 84484; 85025; 87040; 93005; 93041; 94760; 96374; 97161; 97530; 99285; 93268; J2405; A9270-GY; G0378